=== PATIENT | male | born 1965 | race Caucasian/White ===

== ENCOUNTER 2017-06-08 08:09 | Inpatient (IN) ==
[2017-06-08] MEDS ORDERED: Aspirin 81 MG TAB.CHEW PO ONE (08:18)
[2017-06-08] MEDS ORDERED: 0.9 % Sodium Chloride 1,000 ML IVC ONE ×2 (08:35→08:50)
--- NOTE | 2017-06-08 08:35 | Emergency Department Note ---
Disposition Clinical Impression: Atrial fibrillation with RVR, SOB (shortness of breath), Lightheadedness Chest pain Qualifiers: Chest pain type: unspecified Qualified Code(s): R07.9 - Chest pain, unspecified Disposition: Admitted As Inpatient Condition: Fair General Adult HPI - General Chief complaint: ED Chest Pain Stated complaint: JALIL, chest pain Time Seen by Provider: 06/08/17 08:17 Source: patient, family Limitations: language barrier Nursing Notes Reviewed: Yes Vital Signs Reviewed: Yes - History of Present Illness Pain Scale: 2 - Related Data Home Medications Medication Instructions Recorded Confirmed No Known Home Drugs 06/08/17 06/08/17 Allergies Allergy/AdvReac Type Severity Reaction Status Date / Time No Known Allergies Allergy Verified 06/08/17 09:01 Past Medical History - Past Medical History Medical history: Reports: atrial fibrillation Psychiatric history: Reports: no psych history - Social History Smoking Status: Former smoker Smokeless Tobacco Status: No Alcohol use: Reports: heavy Drug use: Reports: none Physical Exam - General Limitations: language barrier General appearance: alert, in no apparent distress Course Vital Signs Temperature 97.9 F 06/08/17 08:11 Pulse Rate 186 06/08/17 08:11 Respiratory Rate 18 06/08/17 08:11 Blood Pressure 0/0 06/08/17 08:11 O2 Sat by Pulse Oximetry 100 06/08/17 08:11 Temperature 97.9 F 06/08/17 08:11 Pulse Rate 109 06/08/17 12:02 Respiratory Rate 18 06/08/17 12:02 Blood Pressure 165/96 06/08/17 12:09 O2 Sat by Pulse Oximetry 95 06/08/17 12:06 Oxygen Delivery Oxygen Delivery Room Air Medical Decision Making - MDM Narrative Medical decision making narrative: This documentation is done with the assistance of Dragon dictation. Despite efforts made to ensure accuracy, there may be inaccuracies in roll forming machine set up operator or spelling and typographical errors. Patient evaluated on arrival with chest pain history of A. fib. No old EKG here. Initial EKG has a wandering baseline and difficult to interpret this could be A. fib but it looks sicker could be P waves also saw repeating EKG. We are going to order a cardiac workup on him and reassess. He will most likely need admission. He is in agreement with this plan. Chest X-Ray 06/08/17 08:18 IMPRESSION: In this patient with cardiomegaly, ground-glass opacities at the right lung base may represent mild edema or atelectasis. Early pneumonitis cannot be definitively excluded. D/ / Gerard Heart MD / Gerard Heart MD Interpreting Provider: Gerard Heart MD 916 hours: Patient started on diltiazem IV and oral. His heart rates come down to 100. Chest x-ray is done. He is any cough and does not have any fevers here. Waiting on lab work then we will admit. He is in agreement with this plan. 30 hours. Patient's heart rates down to 100, still in atrial fibrillation. Chest x-ray showed a possible groundglass appearance certain add-on BNP I do not think this is pneumonia. Speak with hospitalist for admission. - Lab Data Result diagrams: 06/08/17 08:32 06/08/17 08:32 Lab Results 06/08/17 06/08/17 06/08/17 Range/Units 08:32 08:32 08:32 WBC 7.5 (4.3-11.1) K/mcL RBC 5.24 (4.19-5.50) M/mcL Hgb 17.4 H (12.9-16.9) g/dL Hct 51.7 H (37.5-50.1) % MCV 98.7 (83.0-100.0) fL MCH 33.2 (28.0-33.3) pg MCHC 33.7 (31.6-35.5) g/dL RDW 13.7 (11.5-14.5) % Plt Count 206 (140-400) K/mcL MPV 10.8 (9.4-12.4) fL Immature Gran % 0.4 (0-4) % Seg Neutrophils % 62.1 % Lymphocytes % 27.4 % Monocytes % 8.1 % Eosinophils % 1.3 % Basophils % 0.7 % Neutrophils # 4.7 (1.6-8.9) K/mcL Lymphocytes # 2.1 (0.6-4.6) K/mcL Monocytes # 0.6 (0.0-1.3) K/mcL Eosinophils # 0.1 (0.0-0.6) K/mcL Basophils # 0.1 (0.0-0.2) K/mcL Sodium 139 (136-145) mEq/L Potassium 4.0 (3.5-5.1) mEq/L Chloride 105 (98-107) mEq/L Carbon Dioxide 24 (23-29) mEq/L BUN 13 (6-20) mg/dL Creatinine 1.14 (0.70-1.30) mg/dL Est GFR ( Amer) > 60 (> 60) Est GFR (Non-Af Amer) > 60 (> 60) BUN/Creatinine Ratio 11 (6-26) Glucose 119 H (70-105) mg/dL Calculated Osmolality 289 (280-300) Calcium 10.1 (8.6-10.3) mg/dL Troponin I 0.03 (< 0.04) ng/mL B-Natriuretic Peptide 772 H (Less than 100) pg/mL TSH 3.140 (0.340-5.600) mcIU/mL Critical Care Time Critical Care Time: Yes Total Critical Care Time: 32 Attestation: This is excluding any separately billable procedures.
[2017-06-08 08:46] LABS: Basophils # 0.1 K/mcL (0.0-0.2); Basophils % 0.7 %; Eosinophils # 0.1 K/mcL (0.0-0.6); Eosinophils % 1.3 %; Hematocrit 51.7 % (37.5-50.1); Hemoglobin 17.4 g/dL (12.9-16.9); Immature Granulocytes % 0.4 % (0-4); Lymphocytes # 2.1 K/mcL (0.6-4.6); Lymphocytes % 27.4 %; Mean Corpuscular HGB Conc 33.7 g/dL (31.6-35.5); Mean Corpuscular Hemoglobin 33.2 pg (28.0-33.3); Mean Corpuscular Volume 98.7 fL (83.0-100.0); Mean Platelet Volume 10.8 fL (9.4-12.4); Monocytes # 0.6 K/mcL (0.0-1.3); Monocytes % 8.1 %; Neutrophils # 4.7 K/mcL (1.6-8.9); Platelet Count 206 K/mcL (140-400); Red Blood Count 5.24 M/mcL (4.19-5.50); Red Cell Distribution Width 13.7 % (11.5-14.5); Segmented Neutrophils % 62.1 %
--- NOTE | 2017-06-08 08:50 | Emergency Department Note ---
Disposition Clinical Impression: Atrial fibrillation with RVR, SOB (shortness of breath), Lightheadedness Chest pain Qualifiers: Chest pain type: unspecified Qualified Code(s): R07.9 - Chest pain, unspecified Disposition: Admitted As Inpatient Condition: Fair Time of Disposition: 09:37 Arrhythmia/Palpitations HPI - General Chief Complaint: ED Arrhythmia/Palpitations Stated Complaint: JALIL, chest pain Time Seen by Provider: 06/08/17 08:17 Source: patient, family Limitations: language barrier Nursing Notes Reviewed: Yes Vital Signs Reviewed: Yes - History of Present Illness HPI Narrative: 52-year-old male complains of onset of chest pain, lightheadedness without vertigo-like symptoms, and dyspnea on exertion. Patient states his symptoms started after he woke up this morning around 0530 hrs., And any exertion with increase his shortness of breath and lightheadedness and chest pressure. Patient states his chest pressure is currently 2/10 but elevates to 4/10 with exertion, and symptoms have been constant. Patient denies any radiation of pain symptoms to his neck, or upper extremities. Patient states he may have a history of A. fib after being told back in the , blood patient's currently under no treatment for any medical condition. Patient denies any recent illness to include flulike symptoms, abdominal pain, nausea vomiting diarrhea. Patient denies any recent long distance travel, prior history of PE or DVT, hormone replacement therapy prior diagnosis of neoplasm, and no hemoptysis or rectal bleeding. Patient also adds that he has been having the palpitations for songs he can remember but this is the first time he has had shortness of breath and chest pressure. Patient is no longer a tobacco user. Patient quit 20 years ago and smoked for 25 years - Related Data Home Medications Medication Instructions Recorded Confirmed No Known Home Drugs 06/08/17 06/08/17 Allergies Allergy/AdvReac Type Severity Reaction Status Date / Time No Known Allergies Allergy Verified 06/08/17 09:01 All systems ED: reviewed and negative except as stated. Review of Systems: As Per HPI Constitutional: Denies: fever, chills, weakness ENT ED: Denies: congestion Cardiovascular: Reports: chest pain, palpitations, dyspnea on exertion. Denies : orthopnea Respiratory: Reports: dyspnea. Denies: cough, wheezes Past Medical History - Past Medical History Attestation: Yes The following information was validated with the patient. Source: patient, nursing notes reviewed Medical history: Reports: atrial fibrillation Psychiatric history: Reports: no psych history - Social History Smoking Status: Former smoker Smokeless Tobacco Status: No Alcohol use: Reports: heavy Drug use: Reports: none Physical Exam Vital Signs Temperature 97.9 F 06/08/17 08:11 Pulse Rate 186 06/08/17 08:11 Respiratory Rate 18 06/08/17 08:11 Blood Pressure 0/0 06/08/17 08:11 O2 Sat by Pulse Oximetry 100 06/08/17 08:11 Temperature 97.9 F 06/08/17 08:11 Pulse Rate 150 06/08/17 08:44 Respiratory Rate 18 06/08/17 08:44 Blood Pressure 96/62 06/08/17 08:44 O2 Sat by Pulse Oximetry 97 06/08/17 08:44 Oxygen Delivery Oxygen Delivery Room Air CONSTITUTIONAL: Well-appearing; well-nourished; A&O X 3, in no apparent distress HEAD: Normocephalic; atraumatic EYES: PERRL, no scleral icterus NOSE: The nose is normal in appearance without rhinorrhea NECK: No JVD or distended neck veins RESP: Normal chest excursion with respiration; breath sounds clear and equal bilaterally; no wheezes, rhonchi, or rales CARD: Iregularly irregular rhythm, without murmurs, rub or gallop ABD: Non-distended; non-tender, soft, without rigidity, rebound or guarding,no pulsatile mass CHEST: No pain with palpation SKIN: Normal for age and race; warm and dry without diaphoresis ; no apparent lesions EXTREMITIES: Pulses are 2 plus and equal times 4 extremities, no peripheral edema or calf muscle pain - General Limitations: language barrier General appearance: alert, in no apparent distress Course - Reevaluation(s) Reevaluation #1: Patient is receiving IV fluid boluses to increase his blood pressure which is currently 96/62. Patient currently appearing well, has no pallor or diaphoresis and not short of breath. Time: 08:55 Reevaluation #2: After the Diltiazem oral and IV, and the addition of IV fluids patient's heart rate is currently between 90s and 110 bpm. Patient no longer has chest pressure. Patient states she still feels little lightheaded. Repeat blood pressure is currently 129/115. Time: 09:11 Reevaluation #3: repeat EKG ordered. Pt is currently comfortable and stable condition. Time: 09:26 - Consultations Consultation #1: Patient was accepted for admission by Dr. Mery Mejia hospitalist in stable condition to telemetry bed. Time: 09:36 Consultation #2: Dr. Lemon of cardiology has been consulted and informed of the patient's condition on being in A. fib RVR, currently rate controlled on diltiazem. Time: 09:39 Consultation #3: Patient had a rhythm change to his EKG showing bigeminy. Dr. Lemon of cardiology was called and updated on the change. He states he will see the patient Time: 10:55 Vital Signs Temperature 97.9 F 06/08/17 08:11 Pulse Rate 186 06/08/17 08:11 Respiratory Rate 18 06/08/17 08:11 Blood Pressure 0/0 06/08/17 08:11 O2 Sat by Pulse Oximetry 100 06/08/17 08:11 Temperature 97.9 F 06/08/17 08:11 Pulse Rate 114 06/08/17 10:19 Respiratory Rate 16 06/08/17 10:19 Blood Pressure 119/101 06/08/17 10:19 O2 Sat by Pulse Oximetry 96 06/08/17 10:19 Oxygen Delivery Oxygen Delivery Room Air Arrhythmia/Palpitations - [facility] Narrative Medical decision making narrative: Patient presents with A. fib RVR at a rate of 160s to 180s. Patient also has chest pressure that it worsens with exertion. Patient will receive ACS workup and rhythm control with diltiazem by mouth 60 mg along with a 25 mg bolus of IV diltiazem. Patient blood pressure can tolerate it. Patient is mildly hypotensive at 96/62 and will receive IV boluses to increase blood pressure before giving antiarrhythmic drugs. Patient's blood pressure was elevated enough outside of his mild hypotension to receive his oral 30 mg and IV diltiazem 25 mg, and brought the patient under rate control between 90s and 110. Patient's diastolic blood pressure continues to be elevated above 110. Patient's chest x-ray shows maybe possible atelectasis and pulmonary vascular congestion for some concerns of possible congestive heart failure, or possible beginning pneumonia. Patient's BNP was elevated and it looks more like possible CHF versus pneumonia. Patient understands and agrees to treatment plan for admission. Patient was accepted for admission by Dr. Mery Mejia hospitalist in stable condition to telemetry bed. - Lab Data Lab results reviewed: Yes I reviewed the patient's lab results. Result diagrams: 06/08/17 08:32 06/08/17 08:32 Lab Results 06/08/17 06/08/17 06/08/17 Range/Units 08:32 08:32 08:32 WBC 7.5 (4.3-11.1) K/mcL RBC 5.24 (4.19-5.50) M/mcL Hgb 17.4 H (12.9-16.9) g/dL Hct 51.7 H (37.5-50.1) % MCV 98.7 (83.0-100.0) fL MCH 33.2 (28.0-33.3) pg MCHC 33.7 (31.6-35.5) g/dL RDW 13.7 (11.5-14.5) % Plt Count 206 (140-400) K/mcL MPV 10.8 (9.4-12.4) fL Immature Gran % 0.4 (0-4) % Seg Neutrophils % 62.1 % Lymphocytes % 27.4 % Monocytes % 8.1 % Eosinophils % 1.3 % Basophils % 0.7 % Neutrophils # 4.7 (1.6-8.9) K/mcL Lymphocytes # 2.1 (0.6-4.6) K/mcL Monocytes # 0.6 (0.0-1.3) K/mcL Eosinophils # 0.1 (0.0-0.6) K/mcL Basophils # 0.1 (0.0-0.2) K/mcL Sodium 139 (136-145) mEq/L Potassium 4.0 (3.5-5.1) mEq/L Chloride 105 (98-107) mEq/L Carbon Dioxide 24 (23-29) mEq/L BUN 13 (6-20) mg/dL Creatinine 1.14 (0.70-1.30) mg/dL Est GFR ( Amer) > 60 (> 60) Est GFR (Non-Af Amer) > 60 (> 60) BUN/Creatinine Ratio 11 (6-26) Glucose 119 H (70-105) mg/dL Calculated Osmolality 289 (280-300) Calcium 10.1 (8.6-10.3) mg/dL Troponin I 0.03 (< 0.04) ng/mL B-Natriuretic Peptide 772 H (Less than 100) pg/mL TSH 3.140 (0.340-5.600) mcIU/mL - EKG Data EKG attestation: Yes I reviewed and interpreted this EKG. EKG results narrative: EKG taken 06/08/2017@0726 hrs. shows A. fib RVR at a rate of 1 48 bpm per the computer. Rhythm along the isoelectric line is difficult to examine for P waves but it does look like they may be present. Repeat EKG taken at 0834 hrs. shows A. fib RVR at a rate of 167 beats minute her the EKG computer read. No clear signs of P waves present. No acute ST elevations or depressions in any leads, no QRS widening or QT prolongation. There are periodic sees present as well. Patient has no previous EKG for comparison taken prior to today.
[2017-06-08] MEDS: dilTIAZem HCl 60 MG TABLET PO SCH ×2 (08:59→12:16)
[2017-06-08 09:07] LABS: Troponin I 0.03 ng/mL (< 0.04)
[2017-06-08 09:09] LABS: BUN/Creatinine Ratio 11 (6-26); Blood Urea Nitrogen 13 mg/dL (6-20); Calcium 10.1 mg/dL (8.6-10.3); Carbon Dioxide 24 mEq/L (23-29); Chloride 105 mEq/L (98-107); Glucose 119 mg/dL (70-105); Osmolality,Calculated 289 (280-300); Sodium 139 mEq/L (136-145); eGFR For African Americans > 60 (> 60); eGFR For Non-African Americans > 60 (> 60)
[2017-06-08] MEDS ORDERED: Naloxone 0.4 MG/ML INJ IVP PRN (11:45)
--- NOTE | 2017-06-08 13:31 | Cardiology Consult Note ---
Addendum entered and electronically signed by Tavo Solis CNP 06/08/17 16:28: Bigeminy and multifocal PVCs also noted on telemetry. BP hypertensive on cardizem gtt. Will also add low dose BB--Lopressor 25mg BID. Original Note: <Tavo Solis - Last Filed: 06/08/17 14:47> Date of Encounter: 06/08/17 Time of Encounter: 13:30 Assessment and Plan (1) Atrial fibrillation with RVR Current Visit: Yes Status: Acute Per pt, initially diagnosed in the 90s with no issues since then. Suspect PAF given his acute symptoms. Intermittent palpitations over the years, but with exertional chest pain, dyspnea, fatigue over the past week. A-Fib RVR rate 167 on admission. K and TSH within normal range. Check Mag. Currently A-Fib, better rate controlled after one time dose of IV push 25mg Cardizem was given. PO Cardizem was was started at 30mg D0qheys. However, would recommend cardizem gtt until pt is adequately rate controlled before being switched to PO. HR still currently >100. Start cardizem gtt at 5mg/hr. If rate controlled tomorrow, will switch to PO. TTE to evaluate structure and function. Discussed with Dr. Lemon regarding. Plan for stress test tomorrow if rate controlled given symptoms of exertional chest pain and dyspnea and concern of A- Fib being ischemia induced. [id number] 0. Hypertensive now, but per pt, is usually hypotensive. 81mg ASA only now given his low [id number]. Heparin gtt while inpt. Recommend outpt sleep study to evaluate for SAVITA. Continue to follow. (2) Chest pain Current Visit: Yes Status: Acute Exertional chest pain over the past week with dyspnea. Improves with rest. Could be secondary to A-Fib RVR, but unable to rule out ischemic cause. Troponin negative x 1. Trend for total of 3. Check TTE to evaluate structure and function. Discussed with Dr. Lemon. Plan for stress test tomorrow. Risk factors for CAD include obesity and prior tobacco abuse. Qualifiers: Chest pain type: unspecified Qualified Code(s): R07.9 - Chest pain, unspecified Discussion w patient/family: The assessment and plan as outlined above was discussed with the patient and/or family members who expressed understanding and agreement. All questions were answered. Thank you for involving us in the care of your patient. Please call with any questions. I will discuss all the above with Dr. Lemon and make changes as necessary. History of Present Illness Consult date: 06/08/17 Requesting physician: Francisco Javier Delgado Consult reason: A-Fib RVR Chief complaint: chest pain, dyspnea History of present illness: Mr. Gaxiola is a 52 year old male with PMH of A-Fib and prior tobacco abuse that presented with complaint of chest heaviness, lightheadedness without vertigo- like symptoms, and worsening dyspnea on exertion over the past week. Reports chest pain would worsen on exertion, improve with rest. Patient states he was told he had A. fib in the , but has never followed up or had symptoms like these. Occasional palpitations. HR on presentation 167, A-Fib RVR. HR currently 120s-130s at bedside, denies chest pain currently. Initial troponin negative. BNP 772. Admits to drinking 2 beers/day. Cardiology consulted for further recommendations. Past Med Surg Social Fam HX - Past Medical History Medical history: atrial fibrillation Psychiatric history: no psych history - Social History Smoking Status: Former smoker Smokeless Tobacco Status: No Alcohol use: heavy Drug use: none Medications and Allergies No Known Home Drugs 06/08/17 [History] 3 Allergy/AdvReac Type Severity Reaction Status Date / Time No Known Allergies Allergy Verified 06/08/17 09:01 All Systems Review: The remainder of the systems were reviewed and are negative - Cardiovascular Cardiovascular: as per HPI, chest pain with exertion, dyspnea on exertion, palpitations - Respiratory Respiratory: dyspnea Physical Examination Vital Signs, Last 4 Hours Pulse Resp BP Pulse Ox 06/08/17 12:09 165/96 06/08/17 12:06 95 06/08/17 12:02 109 18 151/107 95 06/08/17 11:54 105 17 146/105 95 06/08/17 11:49 96 06/08/17 10:19 114 16 119/101 96 Vital Signs Temp Pulse Resp BP Pulse Ox 06/08/17 12:09 165/96 06/08/17 12:06 95 06/08/17 12:02 109 18 151/107 95 06/08/17 11:54 105 17 146/105 95 06/08/17 11:49 96 06/08/17 10:19 114 16 119/101 96 06/08/17 09:30 99 16 115/96 95 06/08/17 09:25 112/60 06/08/17 09:20 109 16 94/63 96 06/08/17 09:17 96 18 129/105 95 06/08/17 09:06 100 18 127/106 96 06/08/17 08:44 150 18 96/62 97 06/08/17 08:31 169 18 145/120 97 06/08/17 08:11 97.9 F 186 18 0/0 100 Intake and Output 06/07/17 06/08/17 06/08/17 23:59 07:59 15:59 Intake Total 1110 / 1110 Balance 1110 / 1110 Intake: IV Fluids 1110 / 1110 0.9 % Sodium Chloride 1,000 ML 1000 / 1000 @ 3750 mls/hr IVC .Q16M ONE Rx# :[id number] Calcium Gluconate 1,000 MG In 0 110 / 110 .9 % Sodium Chloride 100 ML @ 220 mls/hr IVPB ONCE ONE Rx#: [id number] Other: Weight 116.755 kg Patient Weight 06/08/17 23:59 Weight 116.755 kg General: Conversant, No Apparent Distress HEENT: Atraumatic, Normocephaly, Mucus Membranes Moist Neck: No JVD, Normal carotid pulses Cardiac: Other (irregularly irregular) Lungs: Other (diminished) Neuro: Alert and responsive Abdomen: Soft, Non-Tender Skin: No rashes noted on visualized skin Musculoskeletal: No Chest Wall Tenderness Extremities: No Clubbing, No Cyanosis, No Edema, Normal Pulses Results 06/08/17 08:32 06/08/17 08:32 Short CBC 06/08/17 Range/Units 08:32 WBC 7.5 (4.3-11.1) K/mcL Hgb 17.4 H (12.9-16.9) g/dL Hct 51.7 H (37.5-50.1) % Plt Count 206 (140-400) K/mcL Neutrophils # 4.7 (1.6-8.9) K/mcL BMP 06/08/17 Range/Units 08:32 Sodium 139 (136-145) mEq/L Potassium 4.0 (3.5-5.1) mEq/L Chloride 105 (98-107) mEq/L Carbon Dioxide 24 (23-29) mEq/L BUN 13 (6-20) mg/dL Creatinine 1.14 (0.70-1.30) mg/dL Glucose 119 H (70-105) mg/dL Calcium 10.1 (8.6-10.3) mg/dL Cardiac Enzymes 06/08/17 Range/Units 08:32 Troponin I 0.03 (< 0.04) ng/mL Impressions Chest X-Ray 06/08/17 08:18 IMPRESSION: In this patient with cardiomegaly, ground-glass opacities at the right lung base may represent mild edema or atelectasis. Early pneumonitis cannot be definitively excluded. D/ / Gerard Heart MD / Gerard Heart MD Interpreting Provider: Gerard Heart MD Active Medications Diltiazem HCl (Cardizem) 30 mg PO QID CRYSTAL Stop: 12/08/17 09:01 Last Admin: 06/08/17 12:16 Dose: 30 mg Naloxone HCl (Narcan) 0.4 mg IVP Q2MIN PRN PRN Reason: SEE COMMENTS Stop: 12/08/17 11:46 - EKG Interpretation EKG results cardiology: personally reviewed (A-FIb RVR rate 167) Consult Discharge Plan - Plan Referrals: Deanne Mixon, [employer] [Primary Care Provider] - <Daniel Lemon - Last Filed: 06/10/17 10:11> Date of Encounter: 06/08/17 Time of Encounter: 18:30 - Attending Attestation I have personally performed a face to face evaluation on this patient. I have reviewed and agree with the care plan. History and Exam by me shows: CC: Palpitations Pt reports new onset of chest pain, mid sternal, 7/10 at most severe, provoked by exercise, associated with heart racing and skipping, lasts ten to fifteen minutes, accompanied by shortness of breath, resolving with rest over three to five minutes, will return if begins exercising again. He has had sensation of his heart racing and skipping for 10 to 15 years, diagnosed with A fib with RVR in late , no further evaluation of follow up since then. He notes heart racing is much improved, was placed on diltiazem drip in ER with better control of heart rate from 180s to low 100s. He is pain free at present, reports shortness of breath has improved. PMH: PAF PE: reviewed, pt seen and examined, agree with above IMP; 1. PAF; may now be persistent, ventricular response rate not fully controlled, will be adjusting oral agents for better heart rate control. 2. Chest pain: unclear etiology, does correlate with RVR to afib, cannot rule out ischemic etiology, will order echo and stress imaging. 2. Severe systolic impairment with EF 20 - 25%, moderate to severe global hypokinesis, unclear etiology, will order stress imaging to evaluate for ischemic etiology of severe LV systolic impairment. Assessment and Plan Discussion w patient/family: The assessment and plan as outlined above was discussed with the patient and/or family members who expressed understanding and agreement. All questions were answered. Thank you for involving us in the care of your patient. Please call with any questions. History of Present Illness History of present illness: Mr. Gaxiola is a 52 year old male All Systems Review: The remainder of the systems were reviewed and are negative Physical Examination Vital Signs, Last 4 Hours Temp Pulse Resp BP Pulse Ox 06/10/17 07:20 98.4 F 132 16 118/101 96 Results 06/10/17 05:32 06/10/17 05:32 Lab Results 06/09/17 06/10/17 06/10/17 14:22 05:32 05:32 WBC 6.7 Hgb 14.9 Hct 45.1 Plt Count 166 APTT 58.1 H Sodium 138 Potassium 4.0 Chloride 108 H Carbon Dioxide 23 BUN 10 Creatinine 1.02 Glucose 112 H Calcium 8.8
[2017-06-08] MEDS ORDERED: *HR* Heparin 5,000 UNIT/ML VIAL IVP ONE (15:12)
[2017-06-08] MEDS ORDERED: *HR* Heparin 5,000 UNIT/ML VIAL IVP PRN ×2 (15:12)
[2017-06-08 15:27] LABS: Hematocrit 43.7 % (37.5-50.1); Mean Platelet Volume 10.6 fL (9.4-12.4); Platelet Count 169 K/mcL (140-400); Red Blood Count 4.37 M/mcL (4.19-5.50); Red Cell Distribution Width 13.7 % (11.5-14.5)
[2017-06-08 15:28] LABS: Hemoglobin 14.4 g/dL (12.9-16.9)
[2017-06-08 15:33] LABS: INR 1.2; Prothrombin Time 12.8 Seconds (9.4-12.1)
[2017-06-08 15:35] LABS: Activated Partial Thrombo Time 30.8 Seconds (26.0-36.0)
[2017-06-08] MEDS ORDERED: 0.9 % Sodium Chloride 1,000 ML ONE (16:34)
[2017-06-08] MEDS: Heparin 25,000 UNIT/500 ML D5W 25,000 UNIT/500 ML BAG IVC SCH (16:47)
[2017-06-08] MEDS ORDERED: Perflutren Lipid Microsphere 1.3 ML in 0.9 % Sodium Chloride 8.7 ML IVP ONE (21:16)
[2017-06-08] MEDS ORDERED: Perflutren Lipid Microsphere 2 ML VIAL ONE (21:29)
--- NOTE | 2017-06-08 21:58 | Internal Med History&Physical ---
Date of Encounter: 06/08/17 Time of Encounter: 15:00 Internal Medicine - H&P: HPI Chief complaint: palpitations Admitted From: Home (chest pain) History of present illness: Mr. Gaxiola is a 52 year old male history of atrial fibrillation also complaint of palpitations and chest pain. Patient notes palpitations respiratory last 24 hours. Chest pain located substernally without any particular radiation. This time patient was assessment has resolved. This time he denies shortness of breath palpitations or diaphoresis. Extremity denies abdominal pain, nausea and vomiting. Low back pain. He denies fever, chills or rigors. Patient denies melena or hematochezia. Patient voices no other concerns. Past Med Surg Social Fam HX - Past Medical History Medical history: atrial fibrillation Psychiatric history: no psych history - Past Surgical History Surgical History: other (Hernia repair unspecified) - Social History Smoking Status: Former smoker Smokeless Tobacco Status: No Alcohol use: heavy Drug use: none - Additional Family History Additional family history: Reviewed and negative for this particular admission Internal Medicine - H&P: Meds No Known Home Drugs 06/08/17 [History] 3 Allergy/AdvReac Type Severity Reaction Status Date / Time No Known Allergies Allergy Verified 06/08/17 09:01 All Systems PM: A 10-system review of systems was performed and is negative for pertinent findings except as documented above in the HPI. Review of systems: All systems reviewed and negative except for as mentioned in history of present illness - Constitutional Vitals: Temp Pulse Resp BP Pulse Ox 98.0 F 101 16 101/86 92 06/08/17 19:15 06/08/17 19:15 06/08/17 19:15 06/08/17 19:15 06/08/17 19:15 General: Apparent distress, calm, cooperative, able to speak in full senses HEENT: Atraumatic, normocephalic, extra movements are intact, no scleral icterus Neck: JVD no pain to palpation, full range of motion Heart: Irregular irregular Lungs: Clear to auscultation Abdomen: Soft, nontender, nondistended, positive bowel sounds, no guarding, no rigidity Muscular skeletal: Patient moves all 4 extremities freely, no calf tenderness, no pedal edema Neuro: Nonfocal, no lateralization, CN are intact Psychiatry: Normal affect Internal Med - H&P Results - Labs CBC & Chem 7: 06/08/17 15:17 06/08/17 08:32 Labs: Short CBC 06/08/17 Range/Units 15:17 WBC 6.5 (4.3-11.1) K/mcL Hgb 14.4 D (12.9-16.9) g/dL Hct 43.7 (37.5-50.1) % Plt Count 169 (140-400) K/mcL Cardiac Enzymes 06/08/17 06/08/17 Range/Units 14:30 20:24 Troponin I 0.03 0.03 (< 0.04) ng/mL - Assessment and plan (1) Atrial fibrillation with RVR Current Visit: Yes Status: Acute Assessment and plan: Atrial fibrillation with rapid ventricular response. Patient was previous history of atrial fibrillation Appreciate cardiology consultation, patient placed on continuous heparin infusion, pending stress test Cycle serial troponin, continues manager cardiac cath, check TSH (2) Chest pain Current Visit: Yes Status: Acute Assessment and plan: Now resolved. Pending stress testing, patient cardiology recommendations Continue his heparin infusion, cycle serial troponin and no clinical evidence of pulmonary embolism or aortic pathology Qualifiers: Chest pain type: unspecified Qualified Code(s): R07.9 - Chest pain, unspecified - Time Spent With Patient Total time spent is greater than 50% in coordination of care (as documented) at patient's floor/unit and/or counseling patient:
[2017-06-09 00:32] LABS: Hematocrit 44.2 % (37.5-50.1); Hemoglobin 14.5 g/dL (12.9-16.9); Mean Corpuscular HGB Conc 32.8 g/dL (31.6-35.5); Mean Corpuscular Hemoglobin 32.5 pg (28.0-33.3); Mean Corpuscular Volume 99.1 fL (83.0-100.0); Mean Platelet Volume 10.8 fL (9.4-12.4); Platelet Count 180 K/mcL (140-400); Red Blood Count 4.46 M/mcL (4.19-5.50); Red Cell Distribution Width 13.9 % (11.5-14.5)
[2017-06-09 00:39] LABS: INR 1.2; Prothrombin Time 12.9 Seconds (9.4-12.1)
[2017-06-09 01:00] LABS: Alanine Aminotransferase 23 Units/L (7-52); Albumin 3.8 g/dL (3.5-5.7); Albumin/Globulin Ratio 1.7 (1.1-2.2); Alkaline Phosphatase 52 Units/L (34-104); Aspartate Amino Transferase 14 Units/L (13-39); BUN/Creatinine Ratio 14 (6-26); Bilirubin,Total 0.6 mg/dL (0.3-1.0); Blood Urea Nitrogen 14 mg/dL (6-20); Carbon Dioxide 23 mEq/L (23-29); Chloride 107 mEq/L (98-107); Chol/HDL Ratio 4.3 (0-4.9); Cholesterol 149 mg/dL (< 200); Globulin 2.2 g/dL (2.4-3.5); Glucose 123 mg/dL (70-105); HDL Cholesterol 35 mg/dL (40-59); LDL Cholesterol,Calculated 93 mg/dL (0-99); Magnesium 2.2 mg/dL (1.6-2.6); Osmolality,Calculated 284 (280-300); Potassium 3.9 mEq/L (3.5-5.1); Sodium 136 mEq/L (136-145); Triglycerides 103 mg/dL (< 150); eGFR For African Americans > 60 (> 60); eGFR For Non-African Americans > 60 (> 60)
[2017-06-09] MEDS ORDERED: Regadenoson 0.4 MG/5 ML SYRINGE IVP ONE (05:44)
[2017-06-09] MEDS: Heparin 25,000 UNIT/500 ML D5W 25,000 UNIT/500 ML BAG IVC SCH (10:25)
--- NOTE | 2017-06-09 10:26 | Cardiology Progress Note ---
Date of Encounter: 06/09/17 Time of Encounter: 10:22 Assessment and Plan (1) Atrial fibrillation with RVR Current Visit: Yes Status: Acute Per pt, initially diagnosed in the 90s with no issues since then. Suspect PAF given his acute symptoms. Intermittent palpitations over the years, but with exertional chest pain, dyspnea, fatigue over the past week. A-Fib RVR rate 167 on admission. Avg HR was 87 bpm over last 12 hours. Currently on cardizem gtt 7.5 mg hr. TTE shows EF 20%, moderate to severe MR. TSH normal. Recommend stopping cardizem gtt and start toprol xl. Discussed with Dr. Lemon regarding. Plan for completing stress test tomorrow followed by [facility]. [id number] 0. C tomorrow to eval for CAD. Heparin gtt for now. (2) Chest pain Current Visit: Yes Status: Acute Exertional chest pain over the past week with dyspnea. Improves with rest. Could be secondary to A-Fib RVR, but unable to rule out ischemic cause. Troponin negative x 3. TTE shows severely reduced EF at 20%. No previous reports to compare. Discussed with Dr. Lemon. Plan for completion of stress test tomorrow followed by [facility]. Risk factors for CAD include obesity and prior tobacco abuse. Qualifiers: Chest pain type: unspecified Qualified Code(s): R07.9 - Chest pain, unspecified (3) Cardiomyopathy Current Visit: Yes Status: Acute TTE shows severely reduced LVEF at 20%. Chronicity unclear. [facility] recommended to assess for ischemic cause. R/B/A of [facility] reviewed. He agrees to proceed. He is currently euvolemic. Low sodium diet. Daily weights. Strict I&O. Start toprol xl. Consider starting aceI if b/p allows once he is rate controlled. Qualifiers: Cardiomyopathy type: unspecified Qualified Code(s): I42.9 - Cardiomyopathy , unspecified Discussion w patient/family: The assessment and plan as outlined above was discussed with the patient and/or family members who expressed understanding and agreement. All questions were answered. Thank you for involving us in the care of your patient. Please call with any questions. Subjective Principal diagnosis: atrial fibrillation with RVR, chest pain, cardiomyoapthy Interval history: Mr. Gaxiola was scheduled for stress test today. Only one half stress test completed due to elevated heart rates. He denies chest pain currently. Objective Vital Signs, Last 4 Hours Temp Pulse Resp BP Pulse Ox 06/09/17 07:12 97.6 F 87 17 109/97 95 General: Conversant, No Apparent Distress HEENT: Atraumatic, Normocephaly, Mucus Membranes Moist Neck: No JVD, Normal carotid pulses Cardiac: Other (Irregularly irregular) Lungs: Normal Breath Sounds, No Wheeze, Rales, Rhonchi Neuro: Alert and responsive, No focal deficits noted Abdomen: Soft, Non-Tender Skin: No rashes noted on visualized skin Musculoskeletal: No Chest Wall Tenderness Extremities: No Clubbing, No Cyanosis, No Edema, Normal Pulses Results 06/09/17 00:18 06/09/17 00:18 Lab Results 06/08/17 06/08/17 06/08/17 14:30 15:17 15:17 WBC 6.5 Hgb 14.4 D Hct 43.7 Plt Count 169 INR 1.2 APTT 30.8 Sodium Potassium Chloride Carbon Dioxide BUN Creatinine Glucose Calcium Magnesium Total Bilirubin AST ALT Alkaline Phosphatase Troponin I 0.03 06/08/17 06/08/17 06/09/17 20:24 22:21 00:18 WBC Hgb Hct Plt Count INR APTT 101.4 H D Sodium Potassium Chloride Carbon Dioxide BUN Creatinine Glucose Calcium Magnesium Total Bilirubin AST ALT Alkaline Phosphatase Troponin I 0.03 0.03 06/09/17 06/09/17 06/09/17 00:18 00:18 00:18 WBC 8.4 Hgb 14.5 Hct 44.2 Plt Count 180 INR 1.2 APTT Sodium 136 Potassium 3.9 Chloride 107 Carbon Dioxide 23 BUN 14 Creatinine 0.99 Glucose 123 H Calcium 9.0 Magnesium 2.2 Total Bilirubin 0.6 AST 14 ALT 23 Alkaline Phosphatase 52 Troponin I 06/09/17 06:41 WBC Hgb Hct Plt Count INR APTT 64.1 H Sodium Potassium Chloride Carbon Dioxide BUN Creatinine Glucose Calcium Magnesium Total Bilirubin AST ALT Alkaline Phosphatase Troponin I - Imaging and Cardiology Echo: report reviewed - EKG Interpretation EKG results cardiology: personally reviewed Consult Discharge Plan - Plan Referrals: Deanne Mixon, SUPERVISOR FITTING [Primary Care Provider] -
[2017-06-09] MEDS ORDERED: Metoprolol XL (24 HR) Succ 25 MG TAB.ER.24H PO SCH (10:30)
[2017-06-09] MEDS: Aspirin 81 MG TAB.CHEW PO SCH (11:32)
--- NOTE | 2017-06-09 16:04 | Internal Med Progress Note ---
Date of Encounter: 06/09/17 Time of Encounter: 16:01 - Assessment and plan (1) Chest pain Current Visit: Yes Status: Acute Assessment and plan: Reported chest pressure associated with palpitations. Now resolved. Possibly secondary to A. fib however he was found to have new cardiomyopathy therefore need to consider ischemic cause. Stress tests and LHC planned for 06/10. Cardiology following. Cont hep gtt Qualifiers: Chest pain type: unspecified Qualified Code(s): R07.9 - Chest pain, unspecified (2) Atrial fibrillation with RVR Current Visit: Yes Status: Acute Assessment and plan: reports an episode of A. fib in 1990; no anticoagulation at that time. Now symptomatic with palpitations and chest pressure. EKG with Atrial fibrillation with rapid ventricular response (HRs in 160s). He treated with Cardizem and heparin drip. TSH normal. TTE with EF 20%, mildly dilated left ventricle, no evidence of LV thrombus. Cardizem drip stopped and oral BB started per cardiology recommendations. Cont hep gtt. Stress test/LHC planned for 06/10. Cardiology following. (3) Cardiomyopathy Current Visit: Yes Status: Acute Assessment and plan: TTE with EF at 20%, mildly dilated left atrium and mild DD. No known history of CHF. Denies sleep apnea, drinks 3-4 beers daily. Evaluated by cardiology who recommended LHC to assess for ischemic cause. Chronicity unclear. LHC recommended to assess for ischemic cause. Appears euvolemic, no rails or edema on exam. Cont daily weights, strict I&O and low-sodium diet. Start toprol xl. Consider starting aceI if b/p allows once he is rate controlled. Cardiology following. Qualifiers: Cardiomyopathy type: unspecified Qualified Code(s): I42.9 - Cardiomyopathy , unspecified (4) ETOH abuse Current Visit: Yes Status: Acute Assessment and plan: Reports drinking 3-4 beers daily however suspect this may be more than reported. Denies previous history of withdrawal. No evidence of withdrawal on 06/09 exam. Monitor with ERINWA. (5) DVT prophylaxis Current Visit: Yes Status: Acute Assessment and plan: heparin gtt - Time Spent With Patient Total time spent is greater than 50% in coordination of care (as documented) at patient's floor/unit and/or counseling patient: - Subjective Interval history: Seen and examined at bedside. Patient is new to me, information obtained from chart review and patient report. Says he feels well and would like to go home if possible. Feels a little palpitations at times but overall improved. No chest pain or shortness of breath. Discussed echo findings with him and he is agreeable for left heart catheterization if cardiology recommends. - Constitutional Vitals: Temp Pulse Resp BP Pulse Ox 98.3 F 104 20 127/89 95 06/09/17 15:44 06/09/17 15:44 06/09/17 15:44 06/09/17 15:44 06/09/17 15:44 General appearance: Present: A&O X 3, no acute distress - Head Head exam: Present: atraumatic, normocephalic - Eye Eye exam: Present: PERRL, conjuntiva pink, sclera anicteric Pupils: Present: PERRL - Neck Neck exam general surgery: Present: supple, trachea midline. Absent: lymphadenopathy - Respiratory Respiratory exam: Present: CTAB. Absent: accessory muscle use, rales, rhonchi, wheezes - Cardiovascular Cardiovascular exam: Present: irregular rhythm, +S1, +S2. Absent: diastolic murmur, gallop, rubs, systolic murmur - GI/Abdominal GI/Abdominal exam: Present: normal bowel sounds, soft, no peritoneal signs. Absent: distended, tenderness - Extremities Exam Extremities exam: Present: warm, radial pulses palpable and symmetrical. Absent : calf tenderness, cyanotic, pedal edema - Neurological Exam Neurological exam: Present: CN II-XII intact, oriented X3, no focal deficits. Absent: pronater drift, facial droop, speech deficit - Skin Skin exam: Present: dry, intact Internal Medicine: Result - Labs CBC & Chem 7: 06/09/17 00:18 06/09/17 00:18 Labs: Short CBC 06/09/17 Range/Units 00:18 WBC 8.4 (4.3-11.1) K/mcL Hgb 14.5 (12.9-16.9) g/dL Hct 44.2 (37.5-50.1) % Plt Count 180 (140-400) K/mcL BMP 06/09/17 00:18 Sodium 136 Potassium 3.9 Chloride 107 Carbon Dioxide 23 BUN 14 Creatinine 0.99 Glucose 123 H Calcium 9.0 Cardiac Enzymes 06/08/17 06/09/17 Range/Units 20:24 00:18 Troponin I 0.03 0.03 (< 0.04) ng/mL Liver Function 06/09/17 Range/Units 00:18 Total Bilirubin 0.6 (0.3-1.0) mg/dL AST 14 (13-39) Units/L ALT 23 (7-52) Units/L Alkaline Phosphatase 52 (34-104) Units/L Albumin 3.8 (3.5-5.7) g/dL - ABG Interpretation ABG results: PT/INR, D-dimer PT 12.9 Seconds (9.4-12.1) H 06/09/17 00:18 - Impressions Impressions Echocardiogram 06/08/17 13:48 Impressions: LVEF 20%. Indeterminate diastolic function. There is no LV thrombus. Definity echo contrast was used. Mildly dilated left ventricle. RV size is normal. Function is moderate to severely reduced. Mild-moderate mitral regurgitation. Mild-moderate tricuspid regurgitation. Mild pulmonic regurgitation. Mild pulmonary hypertension. The IVC is dilated. Left Ventricular Wall Motion: Rest Echo Findings The apex, apical inferior, mid inferior, basal inferior, apical anterior, mid anterior, basal anterior, apical septal, mid inferior septal, basal inferior septal, apical lateral, mid anterior lateral, basal anterior lateral, mid anterior septal, mid inferior lateral, basal anterior septal and basal inferior lateral friend were hypokinetic. Findings: Study Quality * Technically challenging due to body habitus. ECG Findings * Atrial fibrillation with ventricular ectopy or aberrant conduction. Left Ventricle * LVEF 20%. * Indeterminate diastolic function. * There is no LV thrombus. * Definity echo contrast was used. * Mildly dilated left ventricle. Right Ventricle * RV size is normal. Function is moderate to severely reduced. Left Atrium * Mildly dilated left atrium. Right Atrium * Normal right atrial size. Aortic Valve * Aortic valve not well visualized. * No aortic stenosis. * Trace aortic regurgitation. Mitral Valve * Normal mitral valve structure. * No mitral stenosis. * Mild-moderate mitral regurgitation. Tricuspid Valve * Tricuspid valve not well visualized. * Mild-moderate tricuspid regurgitation. * Estimated RA pressure is 8 mmHg. * Estimated RVSP is 41 mmHg. * Mild pulmonary hypertension. Pulmonic Valve * Pulmonic valve is not well visualized. * No pulmonic stenosis. * Mild pulmonic regurgitation. Pulmonary Artery * Pulmonary artery not well visualized. Aorta * Normally sized aortic root. Pericardium * There is no pericardial effusion present. Interatrial Septum * No evidence of PFO by color Doppler. IVC * The IVC is dilated. * > 50% respiratory change Consult Discharge Plan - Plan Referrals: Deanne Mixon, ABSTRACT SEARCHER [Primary Care Provider] -
[2017-06-09] MEDS ORDERED: *HR* LORazepam 2 MG/ML VIAL IVP PRN ×3 (16:10)
--- NOTE | 2017-06-09 17:07 | Electrocardiograph Report ---
[address] [address] Test Date: 2017-06-08 Pat Name: Luis Enrique Gaxiola Department: 103 Room: [facility] Gender: M Assigner: MSC : 1965 Requested By: Louis Denson Order Number: [id number] Reading MD: Antoinette Jefferson Measurements Intervals [place] Rate: 167 P: FL: 0 QRS: 81 QRSD: 87 T: 0 QT: 272 QTc: 363 Interpretive Statements ATRIAL FIBRILLATION WITH RAPID VENTRICULAR RESPONSE WITH ABERRANT CONDUCTION OR VENTRICULAR PREMATURE COMPLEXES NONSPECIFIC ST & T-WAVE ABNORMALITY ABNORMAL RHYTHM ECG Electronically Signed On 06-09-2017 17:05:57 EDT by Antoinette Jefferson
--- NOTE | 2017-06-09 17:15 | Electrocardiograph Report ---
[address] [place], [place] [address] Test Date: 2017-06-08 Pat Name: Luis Enrique Gaxiola Department: 102 Room: 2S5 Gender: M Fast Food Server: Raudel : 1965 Requested By: Louis Denson Order Number: [id number] Reading MD: Chaka Jefferson Measurements Intervals [place] Rate: 111 P: SD: 0 QRS: 92 QRSD: 102 T: 125 QT: 343 QTc: 409 Interpretive Statements Junctional rhythm with VPC's in a bigeminy pattern BORDERLINE RIGHT AXIS DEVIATION NONSPECIFIC T-WAVE ABNORMALITY ABNORMAL RHYTHM ECG Electronically Signed On 06-09-2017 17:13:49 EDT by Chaka Jefferson
[2017-06-10] MEDS: Heparin 25,000 UNIT/500 ML D5W 25,000 UNIT/500 ML BAG IVC SCH (04:24)
[2017-06-10] MEDS ORDERED: Regadenoson 0.4 MG/5 ML SYRINGE IVP ONE ×2 (05:34→07:33)
[2017-06-10 05:59] LABS: Hematocrit 45.1 % (37.5-50.1); Hemoglobin 14.9 g/dL (12.9-16.9); Mean Corpuscular Hemoglobin 32.6 pg (28.0-33.3); Mean Corpuscular Volume 98.7 fL (83.0-100.0); Platelet Count 166 K/mcL (140-400); Red Blood Count 4.57 M/mcL (4.19-5.50); Red Cell Distribution Width 13.6 % (11.5-14.5)
[2017-06-10 06:18] LABS: BUN/Creatinine Ratio 10 (6-26); Blood Urea Nitrogen 10 mg/dL (6-20); Calcium 8.8 mg/dL (8.6-10.3); Carbon Dioxide 23 mEq/L (23-29); Chloride 108 mEq/L (98-107); Glucose 112 mg/dL (70-105); Osmolality,Calculated 286 (280-300); Sodium 138 mEq/L (136-145); eGFR For African Americans > 60 (> 60); eGFR For Non-African Americans > 60 (> 60)
[2017-06-10] MEDS ORDERED: Metoprolol XL (24 HR) Succ 50 MG TAB.ER.24H PO SCH (07:15)
[2017-06-10] MEDS: Aspirin 81 MG TAB.CHEW PO SCH (09:23)
[2017-06-10] MEDS: Folic Acid 1 MG TABLET PO SCH (09:23)
[2017-06-10] MEDS: Vitamin B Complex/Vit C/Vit E 1 EACH TABLET PO SCH (09:23)
--- NOTE | 2017-06-10 10:36 | Cardiology Progress Note ---
Date of Encounter: 06/10/17 Time of Encounter: 10:59 Assessment and Plan (1) Atrial fibrillation with RVR Current Visit: Yes Status: Acute Per pt, initially diagnosed in the 90s with no issues since then. Suspect PAF given his acute symptoms. Intermittent palpitations over the years. A-Fib RVR rate 167 on admission. TTE shows EF 20%, moderate to severe MR. TSH normal. Recommend stopping cardizem gtt and start toprol xl yesterday. HR elevated this morning. Stress test cancelled. Toprol XL increased to 50 mg daily. [id number]. [facility] tomorrow to eval for CAD. Heparin gtt for now. (2) Chest pain Current Visit: Yes Status: Acute Exertional chest pain over the past week with dyspnea. Improves with rest. Could be secondary to A-Fib RVR, but unable to rule out ischemic cause. Troponin negative x 3. TTE shows severely reduced EF at 20%. No previous reports to compare. Discussed with Dr. Lemon. Plan for [facility]. R/B/A of [facility] reviewed and he agrees to proceed. Risk factors for CAD include obesity and prior tobacco abuse. Qualifiers: Chest pain type: unspecified Qualified Code(s): R07.9 - Chest pain, unspecified (3) Cardiomyopathy Current Visit: Yes Status: Acute TTE shows severely reduced LVEF at 20%. Chronicity unclear. [facility] recommended to assess for ischemic cause. R/B/A of [facility] reviewed. He agrees to proceed. He is currently euvolemic. Low sodium diet. Daily weights. Strict I&O. Increase toprol xl today. Consider starting aceI if b/p allows once he is rate controlled. Qualifiers: Cardiomyopathy type: unspecified Qualified Code(s): I42.9 - Cardiomyopathy , unspecified Discussion w patient/family: The assessment and plan as outlined above was discussed with the patient and/or family members who expressed understanding and agreement. All questions were answered. Thank you for involving us in the care of your patient. Please call with any questions. Subjective Principal diagnosis: atrial fibrillation with RVR, chest pain, cardiomyoapthy Interval history: Mr. Gaxiola was scheduled for stress test today. Only one half stress test completed due to elevated heart rates. Stress test is cancelled. He denies chest pain or palpitations. Objective Vital Signs, Last 4 Hours Temp Pulse Resp BP Pulse Ox 04/13/18 07:20 98.4 F 132 16 118/101 96 General: Conversant, No Apparent Distress HEENT: Atraumatic, Normocephaly, Mucus Membranes Moist Neck: No JVD, Normal carotid pulses Cardiac: Other (Irregularly irregular) Lungs: Normal Breath Sounds, No Wheeze, Rales, Rhonchi Neuro: Alert and responsive, No focal deficits noted Abdomen: Soft, Non-Tender Skin: No rashes noted on visualized skin Musculoskeletal: No Chest Wall Tenderness Extremities: No Clubbing, No Cyanosis, No Edema, Normal Pulses Results 06/10/17 05:32 06/10/17 05:32 Lab Results 06/09/17 06/10/17 06/10/17 14:22 05:32 05:32 WBC 6.7 Hgb 14.9 Hct 45.1 Plt Count 166 APTT 58.1 H Sodium 138 Potassium 4.0 Chloride 108 H Carbon Dioxide 23 BUN 10 Creatinine 1.02 Glucose 112 H Calcium 8.8 - Imaging and Cardiology Echo: report reviewed - EKG Interpretation EKG results cardiology: personally reviewed Consult Discharge Plan - Plan Referrals: Deanne Mixon, CONTINUOUS LINTER DRIER OPERATOR [Primary Care Provider] -
--- NOTE | 2017-06-10 11:20 | Pre-Sedation Evaluation ---
Pre-sedation evaluation - Pre-sedation checklist Date of procedure: 06/10/17 Procedure: heart cath Recent Vitals: Last Vital Signs Temp 98.3 F 06/10/17 11:15 Pulse 108 06/10/17 11:15 Resp 20 06/10/17 11:15 BP 132/106 06/10/17 11:15 Pulse Ox 94 06/10/17 11:15 H&P (including ROS) documented in medical record: Yes Previous reaction to sedatives/anesthetics: No Dietary Status: NPO after Midnight Dentition: No loose teeth or bridges ASA Classification *see protocol: CLASS II-Mild systemic disease
[2017-06-10] MEDS ORDERED: ISOVUE-370 200 ML INFUS..BTL IV ONE (16:09)
[2017-06-10] MEDS ORDERED: Nitroglycerin 1,000 MCG/10 ML VIAL IV ONE (16:09)
[2017-06-10] MEDS ORDERED: Heparin 1,000 UNITS/500 mL 500 ML ONE (16:09)
[2017-06-10] MEDS ORDERED: *HR* Heparin 10,000 UNIT/10 ML VIAL ONE (16:09)
[2017-06-10] MEDS ORDERED: 0.9 % Sodium Chloride 1,000 ML ONE ×2 (16:09→16:39)
[2017-06-10] MEDS ORDERED: *HR* Midazolam HCl 2 MG/2 ML VIAL ONE (16:38)
[2017-06-10] MEDS ORDERED: *HR* FentaNYL (PF) 100 MCG/2 ML VIAL ONE (16:39)
--- NOTE | 2017-06-10 20:28 | Internal Med Progress Note ---
Date of Encounter: 06/10/17 Time of Encounter: 13:30 - Assessment and plan (1) Cardiomyopathy Current Visit: Yes Status: Suspected Assessment and plan: To have cardiac cath today to r/o ischemic cause. Meds per cardiology. Qualifiers: Cardiomyopathy type: alcoholic Qualified Code(s): I42.6 - Alcoholic cardiomyopathy (2) Atrial fibrillation Current Visit: Yes Status: Acute Assessment and plan: Rate control and heparin. Qualifiers: Atrial fibrillation type: persistent Qualified Code(s): I48.1 - Persistent atrial fibrillation (3) Chest pain Current Visit: Yes Status: Suspected Assessment and plan: For cardiac cath today. Qualifiers: Chest pain type: chest pain due to myocardial ischemia Ischemic chest pain type: stable angina pectoris Qualified Code(s): I20.8 - Other forms of angina pectoris (4) DVT prophylaxis Current Visit: Yes Status: Acute (5) ETOH abuse Current Visit: Yes Status: Acute Assessment and plan: Reports drinking 3-4 beers daily however suspect this may be more than reported. Denies previous history of withdrawal. No evidence of withdrawal today - Time Spent With Patient Total time spent is greater than 50% in coordination of care (as documented) at patient's floor/unit and/or counseling patient: - Subjective Interval history: Mr Gaxiola is currently in observation for chest pain and rapid a fib. Mr Gaxiola is awaiting cardiac cath. No chest pain at this time. No fever. No GI issues. - Constitutional Vitals: Temp Pulse Resp BP Pulse Ox 98.2 F 97 15 138/88 97 06/10/17 19:25 06/10/17 19:25 06/10/17 19:25 06/10/17 19:25 06/10/17 19:25 General appearance: Present: A&O X 3, answers questions appropriately - Head Head exam: Present: normocephalic - Eye Eye exam: Present: conjuntiva pink - ENT ENT exam: Present: mucous membranes moist - Respiratory Respiratory exam: Present: CTAB. Absent: rales, rhonchi, wheezes - Cardiovascular Cardiovascular exam: Present: irregular rhythm, tachycardia - GI/Abdominal GI/Abdominal exam: Present: soft. Absent: tenderness - Extremities Exam Extremities exam: Present: warm. Absent: tenderness - Neurological Exam Neurological exam: Present: alert, oriented X3 - Skin Skin exam: Present: dry, warm Internal Medicine: Result - Labs CBC & Chem 7: 06/10/17 05:32 06/10/17 05:32 Labs: Short CBC 06/10/17 Range/Units 05:32 WBC 6.7 (4.3-11.1) K/mcL Hgb 14.9 (12.9-16.9) g/dL Hct 45.1 (37.5-50.1) % Plt Count 166 (140-400) K/mcL BMP 06/10/17 05:32 Sodium 138 Potassium 4.0 Chloride 108 H Carbon Dioxide 23 BUN 10 Creatinine 1.02 Glucose 112 H Calcium 8.8 - ABG Interpretation ABG results: PT/INR, D-dimer PT 12.9 Seconds (9.4-12.1) H 06/09/17 00:18 Consult Discharge Plan - Plan Referrals: Deanne Mixon, ASSOCIATE PROJECT MANAGER [Primary Care Provider] -
--- NOTE | 2017-06-11 07:41 | Cardiology Progress Note ---
Date of Encounter: 06/11/17 Time of Encounter: 07:30 Assessment and Plan (1) Cardiomyopathy Current Visit: Yes Status: Suspected TTE shows severely reduced LVEF at 20%. Chronicity unclear. Suspect tachycardia , ETOH induced. [facility] 06/10/17: normal coronary arteries. Continue betablocker, will increase today to improve HR. Recommend ACEi/ARB by discharge if BP will tolerate. Appears euvolemic upon exam. CHF education discussed at length today including Na/fluid restriction diet. Strict I&O's, daily weights. Qualifiers: Cardiomyopathy type: alcoholic Qualified Code(s): I42.6 - Alcoholic cardiomyopathy (2) Atrial fibrillation with RVR Current Visit: Yes Status: Acute Per pt, initially diagnosed in the with no issues since then. Suspect PAF given his acute symptoms. Intermittent palpitations over the years. A-Fib RVR rate 167 on admission. TTE shows EF 20%, moderate to severe MR. TSH normal. HR remains uncontrolled, however improved. Will increase Toprol XL to 75 mg this AM. Avg XW=161 afib. [id number]=5 (CHF). Recommend ASA only for AC. Discussion w patient/family: The assessment and plan as outlined above was discussed with the patient and/or family members who expressed understanding and agreement. All questions were answered. Thank you for involving us in the care of your patient. Please call with any questions. The patient will be discussed and reviewed with Dr. Lemon; changes to be made accordingly. Subjective Principal diagnosis: atrial fibrillation with RVR, chest pain, cardiomyoapthy Interval history: Seen and examined. No events overnight. No issues with cath site. Denies dyspnea, chest pain/discomfort, or palpitations. Long discussion this AM regarding plan of care. Objective Vital Signs, Last 4 Hours Temp Pulse Resp BP Pulse Ox 06/11/17 07:07 97.9 F 118 16 134/93 98 06/11/17 04:57 98.2 F 111 15 113/93 97 General: Conversant, No Apparent Distress HEENT: Atraumatic, Normocephaly, Mucus Membranes Moist Cardiac: Other (irregularly irregular) Lungs: Normal Breath Sounds Neuro: Alert and responsive Abdomen: Soft Skin: No rashes noted on visualized skin Musculoskeletal: No Chest Wall Tenderness Extremities: No Edema, Normal Pulses Other: right groin cath site: soft, no hematoma/bleeding at site. +2 DP/PT pulses Results 06/10/17 05:32 06/10/17 05:32 Lab Results 06/10/17 13:05 APTT 61.1 H Active Medications Aspirin (Aspirin) 81 mg PO DAILY [facility] Stop: 12/09/17 09:01 Last Admin: 06/10/17 09:23 Dose: 81 mg Folic Acid (Folic Acid) 1 mg PO DAILY [facility] Stop: 12/10/17 09:01 Last Admin: 06/10/17 09:23 Dose: 1 mg Lorazepam (Ativan) 1 mg IVP Q1H PRN PRN Reason: Alcohol Withdrawal Stop: 12/09/17 16:11 Lorazepam (Ativan) 2 mg IVP Q4HR PRN PRN Reason: CIWA Score of 10-21 Stop: 12/09/17 16:11 Lorazepam (Ativan) 4 mg IVP Q4HR PRN PRN Reason: CIWA Score of 22-45 Stop: 12/09/17 16:11 Metoprolol Succinate (Toprol Xl) 75 mg PO DAILY [facility] Stop: 12/11/17 09:01 Naloxone HCl (Narcan) 0.4 mg IVP Q2MIN PRN PRN Reason: SEE COMMENTS Stop: 12/08/17 11:46 Vitamin B Complex/Vit C/Vit E (Stresstab) 1 each PO DAILY [facility] Stop: 12/10/17 09:01 Last Admin: 06/10/17 09:23 Dose: 1 each - Imaging and Cardiology Echo: report reviewed Cardiac cath: report reviewed Other Results: 12 hour tele: avg CM=[id number] afib. - EKG Interpretation EKG results cardiology: personally reviewed Consult Discharge Plan - Plan Referrals: Deanne Mixon, FLIGHT ENGINEER INSTRUCTOR [Primary Care Provider] -
[2017-06-11 07:57] LABS: Hematocrit 48.6 % (37.5-50.1); Hemoglobin 15.9 g/dL (12.9-16.9); Mean Corpuscular HGB Conc 32.7 g/dL (31.6-35.5); Mean Corpuscular Hemoglobin 32.4 pg (28.0-33.3); Mean Platelet Volume 10.6 fL (9.4-12.4); Platelet Count 187 K/mcL (140-400); Red Blood Count 4.91 M/mcL (4.19-5.50); Red Cell Distribution Width 13.6 % (11.5-14.5)
[2017-06-11 08:12] LABS: BUN/Creatinine Ratio 11 (6-26); Blood Urea Nitrogen 11 mg/dL (6-20); Calcium 9.2 mg/dL (8.6-10.3); Carbon Dioxide 25 mEq/L (23-29); Chloride 106 mEq/L (98-107); Glucose 105 mg/dL (70-105); Osmolality,Calculated 286 (280-300); Sodium 138 mEq/L (136-145); eGFR For African Americans > 60 (> 60); eGFR For Non-African Americans > 60 (> 60)
[2017-06-11] MEDS: Aspirin 81 MG TAB.CHEW PO SCH (08:17)
[2017-06-11] MEDS: Folic Acid 1 MG TABLET PO SCH (08:18)
[2017-06-11] MEDS: Metoprolol XL (24 HR) Succ 25 MG TAB.ER.24H PO SCH (08:18)
[2017-06-11] MEDS: Vitamin B Complex/Vit C/Vit E 1 EACH TABLET PO SCH (08:18)
--- NOTE | 2017-06-11 10:03 | Internal Med Progress Note ---
Date of Encounter: 06/11/17 Time of Encounter: 09:45 - Assessment and plan (1) Cardiomyopathy Current Visit: Yes Status: Suspected Assessment and plan: Alcoholic versus tachycardia induced. Coronaries normal. Rate remains elevated. Metoprolol increased this AM which appears to have lessened ectopy but concern for pause noted. Will continue metoprolol for now. Due to significance of his dysrhythmia and risk for worsened cardiac status ( i.e. VT) I am going to change his status to inpatient. He will need to remain hospitalized for further adjustments of medications and telemetry monitoring. Qualifiers: Cardiomyopathy type: alcoholic Qualified Code(s): I42.6 - Alcoholic cardiomyopathy (2) Atrial fibrillation Current Visit: Yes Status: Acute Assessment and plan: Metoprolol increased today. Heparin stopped per cardiology. Qualifiers: Atrial fibrillation type: persistent Qualified Code(s): I48.1 - Persistent atrial fibrillation (3) Chest pain Current Visit: Yes Status: Ruled-out Assessment and plan: Cath negative. Qualifiers: Chest pain type: chest pain due to myocardial ischemia Ischemic chest pain type: stable angina pectoris Qualified Code(s): I20.8 - Other forms of angina pectoris (4) ETOH abuse Current Visit: Yes Status: Acute Assessment and plan: Remains on CIWA. No clear evidence of withdrawal at this time. (5) DVT prophylaxis Current Visit: Yes Status: Acute Assessment and plan: Was on heparin drip which has been stopped. Will start subqu heparin. - Time Spent With Patient Total time spent is greater than 50% in coordination of care (as documented) at patient's floor/unit and/or counseling patient: - Subjective Interval history: Mr Gaxiola is currently in observation for chest pain and rapid a fib. Mr Gaxiola had cardiac cath yesterday - coronaries normal. Continues to have rapid a fib and ectopy. Metoprolol increased today. Concern for pauses on tele. He feels OK. No CP. No SOB. No cough. Able to lie flat. Appetite OK. - Constitutional Vitals: Temp Pulse Resp BP Pulse Ox 97.9 F 118 16 134/93 98 06/11/17 07:07 06/11/17 07:07 06/11/17 07:07 06/11/17 07:07 06/11/17 07:07 General appearance: Present: A&O X 3, pleasant, answers questions appropriately - Head Head exam: Present: normocephalic - Eye Eye exam: Present: conjuntiva pink - ENT ENT exam: Present: mucous membranes moist - Respiratory Respiratory exam: Present: CTAB. Absent: rales, rhonchi, wheezes - Cardiovascular Cardiovascular exam: Present: irregular rhythm, tachycardia Additional comments: Multiple ventricular ectopy - single, couplets, triplets - GI/Abdominal GI/Abdominal exam: Present: soft. Absent: tenderness - Extremities Exam Extremities exam: Present: warm. Absent: tenderness - Neurological Exam Neurological exam: Present: alert, oriented X3, no focal deficits - Skin Skin exam: Present: dry, warm Internal Medicine: Result - Labs CBC & Chem 7: 06/11/17 07:42 06/11/17 07:42 Labs: Short CBC 06/11/17 Range/Units 07:42 WBC 6.8 (4.3-11.1) K/mcL Hgb 15.9 (12.9-16.9) g/dL Hct 48.6 (37.5-50.1) % Plt Count 187 (140-400) K/mcL BMP 06/11/17 07:42 Sodium 138 Potassium 4.0 Chloride 106 Carbon Dioxide 25 BUN 11 Creatinine 0.98 Glucose 105 Calcium 9.2 - ABG Interpretation ABG results: PT/INR, D-dimer PT 12.9 Seconds (9.4-12.1) H 06/09/17 00:18 Consult Discharge Plan - Plan Referrals: Deanne Mixon, SODA TESTER [Primary Care Provider] -
[2017-06-11] MEDS: *HR* Heparin 5,000 UNIT/ML VIAL SQ SCH (18:38)
[2017-06-12 03:57] LABS: Hematocrit 44.5 % (37.5-50.1); Hemoglobin 14.7 g/dL (12.9-16.9); Mean Corpuscular Hemoglobin 32.6 pg (28.0-33.3); Mean Corpuscular Volume 98.7 fL (83.0-100.0); Mean Platelet Volume 10.7 fL (9.4-12.4); Platelet Count 171 K/mcL (140-400); Red Blood Count 4.51 M/mcL (4.19-5.50); Red Cell Distribution Width 13.5 % (11.5-14.5)
[2017-06-12 04:19] LABS: BUN/Creatinine Ratio 14 (6-26); Blood Urea Nitrogen 14 mg/dL (6-20); Calcium 8.9 mg/dL (8.6-10.3); Carbon Dioxide 23 mEq/L (23-29); Chloride 106 mEq/L (98-107); Glucose 109 mg/dL (70-105); Osmolality,Calculated 289 (280-300); Sodium 139 mEq/L (136-145); eGFR For African Americans > 60 (> 60); eGFR For Non-African Americans > 60 (> 60)
[2017-06-12] MEDS: *HR* Heparin 5,000 UNIT/ML VIAL SQ SCH ×2 (06:11→16:11)
[2017-06-12] MEDS: Folic Acid 1 MG TABLET PO SCH (08:12)
[2017-06-12] MEDS: Metoprolol XL (24 HR) Succ 25 MG TAB.ER.24H PO SCH (08:12)
[2017-06-12] MEDS: Aspirin 81 MG TAB.CHEW PO SCH (08:12)
[2017-06-12] MEDS: Vitamin B Complex/Vit C/Vit E 1 EACH TABLET PO SCH (08:12)
--- NOTE | 2017-06-12 09:02 | Cardiology Progress Note ---
Date of Encounter: 06/12/17 Time of Encounter: 08:30 Assessment and Plan (1) Atrial fibrillation with RVR Current Visit: Yes Status: Acute Per pt, initially diagnosed in the with no issues since then. Suspect PAF given his acute symptoms. Intermittent palpitations over the years. A-Fib RVR rate 167 on admission. TTE shows EF 20%, moderate to severe MR. TSH normal. HR remains uncontrolled, however improved. Will discuss with Dr. Lemon, may increase Toprol XL to BID dosing. Avg RC=061 afib. Frequent couplets, NSVT noted. Anticipate EP consult in AM. [id number]=1 (CHF). Recommend ASA only for AC. (2) Cardiomyopathy Current Visit: Yes Status: Suspected TTE shows severely reduced LVEF at 20%. Chronicity unclear. Suspect tachycardia , ETOH induced. [facility] 06/10/17: normal coronary arteries. Continue betablocker, will increase today to improve HR. Recommend ACEi/ARB by discharge if BP will tolerate. Appears euvolemic upon exam. CHF education discussed at length today including Na/fluid restriction diet. Strict I&O's, daily weights. Qualifiers: Cardiomyopathy type: alcoholic Qualified Code(s): I42.6 - Alcoholic cardiomyopathy Discussion w patient/family: The assessment and plan as outlined above was discussed with the patient and/or family members who expressed understanding and agreement. All questions were answered. Thank you for involving us in the care of your patient. Please call with any questions. The patient will be discussed and reviewed with Dr. Lemon; changes to be made accordingly. Subjective Principal diagnosis: atrial fibrillation with RVR, chest pain, cardiomyoapthy Interval history: Seen and examined. No events overnight. No issues with cath site. Denies dyspnea, chest pain/discomfort, or palpitations. Long discussion this AM regarding plan of care. Objective Vital Signs, Last 4 Hours Temp Pulse Resp BP Pulse Ox 06/12/17 07:49 98.6 F 100 18 101/93 98 General: Conversant HEENT: Atraumatic, Normocephaly Cardiac: Other (irregularly irregular) Lungs: Normal Breath Sounds Neuro: Alert and responsive Abdomen: Soft Skin: No rashes noted on visualized skin Musculoskeletal: No Chest Wall Tenderness Extremities: No Edema, Normal Pulses Results 06/12/17 03:45 06/12/17 03:45 Lab Results 06/12/17 06/12/17 06/12/17 03:45 03:45 03:45 WBC 6.9 Hgb 14.7 Hct 44.5 Plt Count 171 Sodium 139 Potassium 4.0 Chloride 106 Carbon Dioxide 23 BUN 14 Creatinine 1.01 Glucose 109 H Calcium 8.9 Magnesium 2.1 Active Medications Aspirin (Aspirin) 81 mg PO DAILY [facility] Stop: 12/09/17 09:01 Last Admin: 06/12/17 08:12 Dose: 81 mg Folic Acid (Folic Acid) 1 mg PO DAILY [facility] Stop: 12/10/17 09:01 Last Admin: 06/12/17 08:12 Dose: 1 mg Heparin Sodium (Porcine) (Heparin) 5,000 unit SQ Q12HR [facility] Stop: 12/11/17 18:01 Last Admin: 06/12/17 06:11 Dose: Not Given Lorazepam (Ativan) 1 mg IVP Q1H PRN PRN Reason: Alcohol Withdrawal Stop: 12/09/17 16:11 Lorazepam (Ativan) 2 mg IVP Q4HR PRN PRN Reason: CIWA Score of 10-21 Stop: 12/09/17 16:11 Lorazepam (Ativan) 4 mg IVP Q4HR PRN PRN Reason: CIWA Score of 22-45 Stop: 12/09/17 16:11 Metoprolol Succinate (Toprol Xl) 75 mg PO DAILY [facility] Stop: 12/11/17 09:01 Last Admin: 06/12/17 08:12 Dose: 75 mg Naloxone HCl (Narcan) 0.4 mg IVP Q2MIN PRN PRN Reason: SEE COMMENTS Stop: 12/08/17 11:46 Vitamin B Complex/Vit C/Vit E (Stresstab) 1 each PO DAILY [facility] Stop: 12/10/17 09:01 Last Admin: 06/12/17 08:12 Dose: 1 each - Imaging and Cardiology Echo: report reviewed Cardiac cath: report reviewed Other Results: 12 hour tele: avg NM=444 afib. Frequent PVCs - EKG Interpretation EKG results cardiology: personally reviewed Consult Discharge Plan - Plan Referrals: Deanne Mixon, SHAKER OPERATOR [Primary Care Provider] -
--- NOTE | 2017-06-12 16:30 | Internal Med Progress Note ---
Date of Encounter: 06/12/17 Time of Encounter: 14:00 - Assessment and plan (1) Cardiomyopathy Current Visit: Yes Status: Suspected Assessment and plan: Alcoholic versus tachycardia induced. Coronaries normal. Continues to have rapid a fib and ventricular ectopy. On Metoprolol at this time. BP on lower side. To have EP consult tomorrow. Qualifiers: Cardiomyopathy type: alcoholic Qualified Code(s): I42.6 - Alcoholic cardiomyopathy (2) Atrial fibrillation Current Visit: Yes Status: Acute Assessment and plan: Currently on Metoprolol. EP consult tomorrow. Qualifiers: Atrial fibrillation type: persistent Qualified Code(s): I48.1 - Persistent atrial fibrillation (3) ETOH abuse Current Visit: Yes Status: Acute Assessment and plan: Remains on CIWA. No withdrawal issues. (4) DVT prophylaxis Current Visit: Yes Status: Acute - Time Spent With Patient Total time spent is greater than 50% in coordination of care (as documented) at patient's floor/unit and/or counseling patient: - Subjective Interval history: Mr Gaxiola is currently admitted for atrial fibrillation and systolic heart failure. He remains moderate to high risk due to potential for worsening clinical and cardiac status. Mr Gaxiola feels OK. Heart rate is still high. BP lower today. Still with significant ventricular ectopy. No fever. No CP or SOB. - Constitutional Vitals: Temp Pulse Resp BP Pulse Ox 98.8 F 96 18 114/90 97 06/12/17 16:21 06/12/17 16:21 06/12/17 16:21 06/12/17 16:21 06/12/17 16:21 General appearance: Present: A&O X 3, pleasant, answers questions appropriately - Head Head exam: Present: normocephalic - Eye Eye exam: Present: conjuntiva pink - ENT ENT exam: Present: mucous membranes moist - Respiratory Respiratory exam: Present: CTAB. Absent: rales, rhonchi, wheezes - Cardiovascular Cardiovascular exam: Present: irregular rhythm, tachycardia - GI/Abdominal GI/Abdominal exam: Present: soft. Absent: tenderness - Extremities Exam Extremities exam: Present: warm. Absent: tenderness - Neurological Exam Neurological exam: Present: alert, oriented X3, no focal deficits - Skin Skin exam: Present: dry, warm Internal Medicine: Result - Labs CBC & Chem 7: 06/12/17 03:45 06/12/17 03:45 Labs: Short CBC 06/12/17 Range/Units 03:45 WBC 6.9 (4.3-11.1) K/mcL Hgb 14.7 (12.9-16.9) g/dL Hct 44.5 (37.5-50.1) % Plt Count 171 (140-400) K/mcL BMP 06/12/17 03:45 Sodium 139 Potassium 4.0 Chloride 106 Carbon Dioxide 23 BUN 14 Creatinine 1.01 Glucose 109 H Calcium 8.9 - ABG Interpretation ABG results: PT/INR, D-dimer PT 12.9 Seconds (9.4-12.1) H 06/09/17 00:18 Consult Discharge Plan - Plan Referrals: Deanne Mixon, PATIENT PORTAL REPRESENTATIVE [Primary Care Provider] -
[2017-06-12] MEDS: Metoprolol XL (24 HR) Succ 50 MG TAB.ER.24H PO SCH (21:17)
[2017-06-13] MEDS: *HR* Heparin 5,000 UNIT/ML VIAL SQ SCH ×2 (05:57→10:53)
[2017-06-13 06:09] LABS: Hematocrit 44.8 % (37.5-50.1); Hemoglobin 14.8 g/dL (12.9-16.9); Mean Corpuscular Hemoglobin 32.6 pg (28.0-33.3); Mean Corpuscular Volume 98.7 fL (83.0-100.0); Mean Platelet Volume 11.1 fL (9.4-12.4); Platelet Count 193 K/mcL (140-400); Red Blood Count 4.54 M/mcL (4.19-5.50); Red Cell Distribution Width 13.6 % (11.5-14.5)
[2017-06-13 06:15] LABS: INR 1.2; Prothrombin Time 12.8 Seconds (9.4-12.1)
[2017-06-13 06:34] LABS: BUN/Creatinine Ratio 14 (6-26); Blood Urea Nitrogen 13 mg/dL (6-20); Calcium 9.2 mg/dL (8.6-10.3); Carbon Dioxide 26 mEq/L (23-29); Chloride 107 mEq/L (98-107); Glucose 111 mg/dL (70-105); Osmolality,Calculated 287 (280-300); Sodium 138 mEq/L (136-145); eGFR For African Americans > 60 (> 60); eGFR For Non-African Americans > 60 (> 60)
[2017-06-13] MEDS: Aspirin 81 MG TAB.CHEW PO SCH (08:03)
[2017-06-13] MEDS: Metoprolol XL (24 HR) Succ 50 MG TAB.ER.24H PO SCH ×2 (08:03→21:24)
[2017-06-13] MEDS: Vitamin B Complex/Vit C/Vit E 1 EACH TABLET PO SCH (10:51)
[2017-06-13] MEDS: Folic Acid 1 MG TABLET PO SCH (10:51)
[2017-06-13] MEDS ORDERED: Metoprolol XL (24 HR) Succ 25 MG TAB.ER.24H PO ONE (12:02)
--- NOTE | 2017-06-13 12:07 | Electrophysiology Consult Note ---
<Tavo Solis R - Last Filed: 06/13/17 12:47> Date of Encounter: 06/13/17 Time of Encounter: 12:03 Assessment and Plan (1) Atrial fibrillation with RVR Status: Acute Per pt, initially diagnosed in the with no issues since then. Unclear if PAF or if has been persistent. Intermittent palpitations over the years. A-Fib RVR rate 167 on admission. TTE shows EF 20%, mildly dilated LA. C normal cors. TSH normal. HR improved. 12 hr tele AVG HR 103, A-Fib. Frequent couplets, NSVT noted. Currently on Toprol XL 50mg BID. BP stable. Will increase Toprol XL to 75mg BID. [id number]=8 (CHF). Discussed with Dr. Chaka Jefferson. Recommends PO Amiodarone 200mg BID. Also recommends anticoagulation. Will discuss NOAC vs Coumadin. Can be d/c'd home once rate controlled, but if unable to rate control, can complete JULIO/DCCV as inpt. If able to be rate controlled, plan for DCCV as outpt. Continue to follow. (2) Cardiomyopathy Status: Suspected TTE shows severely reduced LVEF at 20%. Chronicity unclear. Suspect tachycardia , ETOH induced. [facility] 06/10/17: normal coronary arteries. Continue betablocker, will increase today to improve HR. Recommend ACEi/ARB by discharge if BP will tolerate. Appears euvolemic upon exam. CHF education discussed at length including Na/fluid restriction diet. Strict I&O's, daily weights. Recheck TTE as outpt in 3 months to evaluate need for ICD. Qualifiers: Cardiomyopathy type: alcoholic Qualified Code(s): I42.6 - Alcoholic cardiomyopathy Discussion w patient/family: The assessment and plan as outlined above was discussed with the patient and/or family members who expressed understanding and agreement. All questions were answered. Thank you for involving us in the care of your patient. Please call with any questions. I will discuss all the above with Dr. Chaka Jefferson and make changes as necessary. History of Present Illness Consult date: 06/13/17 Requesting physician: Lissette Tyson Consult reason: A-Fib RVR, NSVT Chief complaint: Palpitations History of present illness: Mr. Gaxiola is a 52 year old male with PMH of A-Fib diagnosed in the and prior tobacco abuse that presented to ED with complaint of chest heaviness, lightheadedness without vertigo-like symptoms, and worsening dyspnea on exertion over the past week. Reported chest pain worse on exertion, improved with rest. HR on presentation 167, A-Fib RVR. TTE resulted, EF 20%, underwent LHC on Tuesday with normal coronaries. Pt is currently on Toprol XL 50mg BID and AVG HR 103 with frequent ectopy--bigeminy, short runs of NSVT. EP consulted for further recommendations. Per pt, he has been correlating symptoms with telemetry and he is asymptomatic unless he has 4 or more beat run of NSVT, then he notices palpitations. Denies active chest pain or dyspnea. Past Med Surg Social Fam HX - Past Medical History Medical history: atrial fibrillation Psychiatric history: no psych history - Past Surgical History Surgical History: other (Hernia repair unspecified) - Social History Smoking Status: Former smoker Smokeless Tobacco Status: No Alcohol use: heavy Drug use: none Medications and Allergies Amiodarone [Cordarone] 200 mg PO BID #60 tablet 06/13/17 [Rx] Apixaban [Eliquis] 5 mg PO BID #60 tablet 06/13/17 [Rx] Folic Acid 1 mg PO DAILY tablet 06/13/17 [Rx] Metoprolol XL (24 HR) Succ [Toprol Xl] 75 mg PO BID #90 tab.er.24h 06/13/17 [Rx] Vitamin B Complex/Vit C/Vit E [Stresstab] 1 each PO DAILY tablet 06/13/17 [Rx] 3 Allergy/AdvReac Type Severity Reaction Status Date / Time No Known Allergies Allergy Verified 06/08/17 09:01 All Systems Review: The remainder of the systems were reviewed and are negative - Cardiovascular Cardiovascular: as per HPI, palpitations Physical Examination Vital Signs, Last 4 Hours Temp Pulse Resp BP Pulse Ox 06/13/17 11:31 98.4 F 105 17 123/76 06/13/17 08:40 98.0 F 113 18 112/91 96 Vital Signs Temp Pulse Resp BP Pulse Ox 06/13/17 11:31 98.4 F 105 17 123/76 06/13/17 08:40 98.0 F 113 18 112/91 96 06/13/17 04:44 98.6 F 98 18 104/91 96 04/16/18 00:02 98.5 F 104 18 101/87 97 06/12/17 19:44 98 F 96 18 107/97 96 06/12/17 16:21 98.8 F 96 18 114/90 97 Intake and Output 06/12/17 06/13/17 06/13/17 23:59 07:59 15:59 Intake Total 710 / 710 120 / 120 Output Total 900 / 900 975 / 975 Balance -190 / -190 -975 / -975 120 / 120 Intake: Oral 710 / 710 120 / 120 Output: Urine 900 / 900 975 / 975 Other: Meal Dinner Breakfast Percent of Meal Consumed 100% 100% Weight 114.3 kg Patient Weight 06/13/17 23:59 Weight 114.3 kg General: Conversant, No Apparent Distress HEENT: Atraumatic, Normocephaly, Mucus Membranes Moist Neck: No JVD, Normal carotid pulses Cardiac: Other (irregularly irregular) Lungs: Normal Breath Sounds, No Wheeze, Rales, Rhonchi Neuro: Alert and responsive, No focal deficits noted Abdomen: Soft, Non-Tender Skin: No rashes noted on visualized skin Musculoskeletal: No Chest Wall Tenderness Extremities: No Clubbing, No Cyanosis, No Edema, Normal Pulses Results 06/13/17 05:27 06/13/17 05:27 Lab Results 06/13/17 06/13/17 06/13/17 05:27 05:27 05:27 WBC 7.2 Hgb 14.8 Hct 44.8 Plt Count 193 INR 1.2 Sodium 138 Potassium 4.0 Chloride 107 Carbon Dioxide 26 BUN 13 Creatinine 0.96 Glucose 111 H Calcium 9.2 Short CBC 06/13/17 Range/Units 05:27 WBC 7.2 (4.3-11.1) K/mcL Hgb 14.8 (12.9-16.9) g/dL Hct 44.8 (37.5-50.1) % Plt Count 193 (140-400) K/mcL BMP 06/13/17 Range/Units 05:27 Sodium 138 (136-145) mEq/L Potassium 4.0 (3.5-5.1) mEq/L Chloride 107 (98-107) mEq/L Carbon Dioxide 26 (23-29) mEq/L BUN 13 (6-20) mg/dL Creatinine 0.96 (0.70-1.30) mg/dL Glucose 111 H (70-105) mg/dL Calcium 9.2 (8.6-10.3) mg/dL Active Medications Aspirin (Aspirin) 81 mg PO DAILY [facility] Stop: 12/09/17 09:01 Last Admin: 06/13/17 08:03 Dose: 81 mg Folic Acid (Folic Acid) 1 mg PO DAILY [facility] Stop: 12/10/17 09:01 Last Admin: 06/13/17 10:51 Dose: 1 mg Heparin Sodium (Porcine) (Heparin) 5,000 unit SQ Q12HR [facility] Stop: 12/11/17 18:01 Last Admin: 06/13/17 10:53 Dose: Not Given Lorazepam (Ativan) 1 mg IVP Q1H PRN PRN Reason: Alcohol Withdrawal Stop: 12/09/17 16:11 Lorazepam (Ativan) 2 mg IVP Q4HR PRN PRN Reason: CIWA Score of 10-21 Stop: 12/09/17 16:11 Lorazepam (Ativan) 4 mg IVP Q4HR PRN PRN Reason: CIWA Score of 22-45 Stop: 12/09/17 16:11 Metoprolol Succinate (Toprol Xl) 25 mg PO ONCE ONE Stop: 06/13/17 12:03 Metoprolol Succinate (Toprol Xl) 75 mg PO BID [facility] Stop: 12/13/17 21:01 Naloxone HCl (Narcan) 0.4 mg IVP Q2MIN PRN PRN Reason: SEE COMMENTS Stop: 12/08/17 11:46 Vitamin B Complex/Vit C/Vit E (Stresstab) 1 each PO DAILY [facility] Stop: 12/10/17 09:01 Last Admin: 06/13/17 10:51 Dose: 1 each - Imaging and Cardiology Echo: report reviewed Cardiac cath: report reviewed - EKG Interpretation EKG results cardiology: other (12 hr tele AVG HR 103, A-Fib, frequent ectopy and PVCs) Consult Discharge Plan - Plan Instructions: Metoprolol (By mouth), Amiodarone (By mouth), Apixaban (By mouth) , Atrial Fibrillation (GEN), Cardioversion (GEN) Referrals: Deanne Mixon, GED INSTRUCTOR [Primary Care Provider] - (Office will not make a follow up appointment they want the patient to make their own appointment) Prescriptions: Amiodarone [Cordarone] 200 mg PO BID #60 tablet Apixaban [Eliquis] 5 mg PO BID #60 tablet Metoprolol XL (24 HR) Succ [Toprol Xl] 75 mg PO BID #90 tab.er.24h <Chaka Jefferson - Last Filed: 06/14/17 15:22> Date of Encounter: 06/14/17 - Attending Attestation I have personally performed a face to face evaluation on this patient. I have reviewed and agree with the care plan. History and Exam by me shows: Subacute onset AF of unkown duration. New nonischemic cardiomyopathy. Woul recommend antiarrythmic initiation (amio) and anticoagulation. If able to be rate controlled would discharge for outpt. cardioversion. Assessment and Plan Discussion w patient/family: The assessment and plan as outlined above was discussed with the patient and/or family members who expressed understanding and agreement. All questions were answered. Thank you for involving us in the care of your patient. Please call with any questions. History of Present Illness History of present illness: Mr. Gaxiola is a 52 year old male All Systems Review: The remainder of the systems were reviewed and are negative Physical Examination Vital Signs, Last 4 Hours Pulse Resp BP Pulse Ox 06/14/17 11:41 109/88 06/14/17 11:20 101 19 98/90 99 Results 06/14/17 04:43 06/14/17 04:43 Lab Results 06/14/17 06/14/17 04:43 04:43 WBC 6.8 Hgb 14.7 Hct 45.3 Plt Count 196 Sodium 139 Potassium 4.1 Chloride 107 Carbon Dioxide 25 BUN 12 Creatinine 1.01 Glucose 113 H Calcium 9.2
--- NOTE | 2017-06-13 13:21 | Internal Med Progress Note ---
<Duane Rendon - Last Filed: 06/13/17 17:20> Date of Encounter: 06/13/17 Time of Encounter: 11:30 - Assessment and plan (1) Cardiomyopathy Current Visit: Yes Status: Suspected Assessment and plan: Echo demonstrated EF of 20%, but LHC was negative for any coronary artery stenosis. Electrophysiology recommendations as above. Qualifiers: Cardiomyopathy type: alcoholic Qualified Code(s): I42.6 - Alcoholic cardiomyopathy (2) ETOH abuse Current Visit: Yes Status: Acute Assessment and plan: Remains on CIWA. Continues to have no withdrawal symptoms. (3) DVT prophylaxis Current Visit: Yes Status: Acute Assessment and plan: SQ H (4) Atrial fibrillation Current Visit: Yes Status: Acute Assessment and plan: Currently on Metoprolol with resting rate in the low 100s with occasional PVCs. EP consult pending. Based on history, likely chronic/paroxysmal picture. Uncertain etiology though candidates could be chronic congestive heart disease or EtOH abuse. -- Electrophysiology recommendations as below Per Electrophysiology: "TTE shows EF 20%, mildly dilated LA. LHC normal cors. TSH normal. HR improved. 12 hr tele AVG HR 103, A-Fib. Frequent couplets, NSVT noted. Currently on Toprol XL 50mg BID. BP stable. Will increase Toprol XL to 75mg BID. [id number]=6 (CHF). Discussed with Dr. Chaka Jefferson. Recommends PO Amiodarone 200mg BID. Also recommends anticoagulation. Will discuss NOAC vs Coumadin. Can be d/c'd home once rate controlled, but if unable to rate control, can complete JULIO/DCCV as inpt. If able to be rate controlled, plan for DCCV as outpt. Continue to follow." Will follow with above recommendations and discharge pending rate control. Overall patient does seem to be on optimistic course for discharge. Continue to monitor Qualifiers: Atrial fibrillation type: persistent Qualified Code(s): I48.1 - Persistent atrial fibrillation - Time Spent With Patient Total time spent is greater than 50% in coordination of care (as documented) at patient's floor/unit and/or counseling patient: - Subjective Interval history: Patient states his asymptomatic this AM experiencing no shortness of air, chest pain, orthopnea, or pedal edema. Patient and partner are both concerned of the term "congestive heart failure" and inquire for further explanation of this condition. No other acute concerns per patient. Awaiting electrophysiology recommendations. - Constitutional Vitals: Temp Pulse Resp BP Pulse Ox 98.4 F 105 17 123/76 96 06/13/17 11:31 06/13/17 11:31 06/13/17 11:31 06/13/17 11:31 06/13/17 08:40 CONSTITUTIONAL: Alert and oriented X3, well-nourished, well appearing, in no apparent distress HEAD: Normocephalic; atraumatic. EYES: PER, no scleral icterus, no drainage, no conjunctival injection Oropharynx: pink/moist RESP: NRD without use of accessory musculature, CTA b/l with no wheezes/rales/ rhonchi CARD: Regular rhythm, without murmurs, rubs, or gallop ABD: grossly normal, soft, non-tender, no guarding/distention/rigidity SKIN: normal appearance, no pallor/diaphoresis,mottling,jaundice,cyanosis EXT: Rad pulses 2+ and symmetrical; trace-to-1+ bilateral pitting edema edema; no other lesions seen PSYCH: appropriate mood/affect General appearance: Present: A&O X 3, pleasant, answers questions appropriately Internal Medicine: Result - Labs CBC & Chem 7: 06/13/17 05:27 06/13/17 05:27 Labs: Short CBC 06/13/17 Range/Units 05:27 WBC 7.2 (4.3-11.1) K/mcL Hgb 14.8 (12.9-16.9) g/dL Hct 44.8 (37.5-50.1) % Plt Count 193 (140-400) K/mcL [facility] 06/13/17 05:27 Sodium 138 Potassium 4.0 Chloride 107 Carbon Dioxide 26 BUN 13 Creatinine 0.96 Glucose 111 H Calcium 9.2 - ABG Interpretation ABG results: PT/INR, D-dimer PT 12.8 Seconds (9.4-12.1) H 06/13/17 05:27 Consult Discharge Plan - Plan Referrals: Deanne Mixon, LOAD OUT WORKER [Primary Care Provider] - (Office will not make a follow up appointment they want the patient to make their own appointment) <Patrick Gee - Last Filed: 06/13/17 17:59> Date of Encounter: 06/13/17 - Assessment and plan (1) Cardiomyopathy Current Visit: Yes Status: Suspected Qualifiers: Cardiomyopathy type: alcoholic Qualified Code(s): I42.6 - Alcoholic cardiomyopathy (2) DVT prophylaxis Current Visit: Yes Status: Acute (3) ETOH abuse Current Visit: Yes Status: Acute (4) Atrial fibrillation Current Visit: Yes Status: Acute Qualifiers: Atrial fibrillation type: persistent Qualified Code(s): I48.1 - Persistent atrial fibrillation - Time Spent With Patient Total time spent is greater than 50% in coordination of care (as documented) at patient's floor/unit and/or counseling patient: - Constitutional Vitals: Temp Pulse Resp BP Pulse Ox 98.4 F 109 18 111/86 96 06/13/17 16:10 06/13/17 16:10 06/13/17 16:10 06/13/17 16:10 06/13/17 08:40 Internal Medicine: Result - Labs CBC & Chem 7: 06/13/17 05:27 06/13/17 05:27 Labs: Short CBC 06/13/17 Range/Units 05:27 WBC 7.2 (4.3-11.1) K/mcL Hgb 14.8 (12.9-16.9) g/dL Hct 44.8 (37.5-50.1) % Plt Count 193 (140-400) K/mcL BMP 06/13/17 05:27 Sodium 138 Potassium 4.0 Chloride 107 Carbon Dioxide 26 BUN 13 Creatinine 0.96 Glucose 111 H Calcium 9.2 - ABG Interpretation ABG results: PT/INR, D-dimer PT 12.8 Seconds (9.4-12.1) H 06/13/17 05:27 - Attending Attestation Please see discharge summary of this date.
[2017-06-13] MEDS: *HR* Amiodarone 200 MG TABLET PO SCH ×2 (13:47→21:24)
--- NOTE | 2017-06-13 18:03 | Discharge Summary ---
- NOTES TO OUTPATIENT PROVIDER Notes to Outpatient Provider: Admitted with rapid a fib and EF of 20%. On amiodarone and rate control meds. Eliquis for anticoagulation. To follow up with cardiology. Date of Encounter: 06/13/17 Time of Encounter: 15:30 - Discharge Diagnosis (1) Cardiomyopathy Priority: Primary Status: Suspected Comments: Alcoholic versus tachycardia induced. Qualifiers: Cardiomyopathy type: dilated Qualified Code(s): I42.0 - Dilated cardiomyopathy (2) Atrial fibrillation Priority: Secondary Status: Chronic Qualifiers: Atrial fibrillation type: persistent Qualified Code(s): I48.1 - Persistent atrial fibrillation (3) Systolic heart failure Priority: Secondary Status: Chronic Qualifiers: Heart failure chronicity: chronic Qualified Code(s): I50.22 - Chronic systolic (congestive) heart failure (4) ETOH abuse Priority: Secondary Status: Chronic Hospital course: Mr. Gaxiola is a 52 year old male with hx of a fib (diagnosed in but on no treatment) presented to ED with CP and dyspnea. He was admitted for further evaluation and treatment. Mr Gaxiola was admitted to the [facility]. He was started on rate control meds and initially was to have stress test. Echo returned with EF of 20% and he had heart cath with normal coronaries. He remained tachycardic with significant ventricular ectopy. His medications were adjusted. On 06/13 he was seen by EP service and Amiodarone was added. He gradually had improvement in heartrate and ectopy and is felt ready for discharge home. Discharge discussed with: patient, family - Time Spent with Patient Total time spent providing and/or coordinating discharge services: 40min - Discharge Medications Prescriptions: Amiodarone [Cordarone] 200 mg PO BID #60 tablet Apixaban [Eliquis] 5 mg PO BID #60 tablet Metoprolol XL (24 HR) Succ [Toprol Xl] 75 mg PO BID #90 tab.er.24h Home Medications: Amiodarone [Cordarone] 200 mg PO BID #60 tablet 06/13/17 [Rx] Apixaban [Eliquis] 5 mg PO BID #60 tablet 06/13/17 [Rx] Folic Acid 1 mg PO DAILY tablet 06/13/17 [Rx] Metoprolol XL (24 HR) Succ [Toprol Xl] 75 mg PO BID #90 tab.er.24h 06/13/17 [Rx] Vitamin B Complex/Vit C/Vit E [Stresstab] 1 each PO DAILY tablet 06/13/17 [Rx] Allergies/Adverse Reactions: 3 Allergy/AdvReac Type Severity Reaction Status Date / Time No Known Allergies Allergy Verified 06/08/17 09:01 Date of admission: 06/11/17 14:11 Primary care physician: Deanne Mixon CNP Consults: 06/13/17 12:04 Consult to Electrophysiology (EP) [CONS] Routine Consulting Provider: Electrophysiology [place] Reason for Consult: Afib Call Completed: Yes Discharging clinician: Patrick Gee Anticipated date of discharge: 06/14/17 - Constitutional Vitals: Temp Pulse Resp BP Pulse Ox 98.4 F 109 18 111/86 96 06/13/17 16:10 06/13/17 16:10 06/13/17 16:10 06/13/17 16:10 06/13/17 08:40 General appearance: Present: A&O X 3, pleasant, answers questions appropriately - Head Head exam: Present: normocephalic - Eye Eye exam: Present: conjuntiva pink - ENT ENT exam: Present: mucous membranes dry - Respiratory Respiratory exam: Present: CTAB. Absent: rales, rhonchi, wheezes - Cardiovascular Cardiovascular exam: Present: irregular rhythm, tachycardia - GI/Abdominal GI/Abdominal exam: Present: soft. Absent: tenderness - Extremities Exam Extremities exam: Present: warm. Absent: tenderness - Neurological Exam Neurological exam: Present: alert, oriented X3, no focal deficits - Skin Skin exam: Present: dry, warm - Patient Status Disposition: Home, Self-Care Condition: Good Functional capacity at discharge: independent ambulation Overall status at discharge: patient is progressing back to baseline - Discharge Instructions Follow Up With: Deanne Mixon CNP [Primary Care Provider] - (Office will not make a follow up appointment they want the patient to make their own appointment) - Diet and Activity Activity: increase activity as tolerated Diet: low fat, low cholesterol, low salt diet
[2017-06-13] MEDS: Apixaban 5 MG TABLET PO SCH (21:24)
[2017-06-13] MEDS: Heparin 25,000 UNIT/500 ML D5W 25,000 UNIT/500 ML BAG IVC SCH (22:03)
[2017-06-14 05:29] LABS: Hematocrit 45.3 % (37.5-50.1); Hemoglobin 14.7 g/dL (12.9-16.9); Mean Corpuscular HGB Conc 32.5 g/dL (31.6-35.5); Mean Corpuscular Hemoglobin 32.6 pg (28.0-33.3); Mean Corpuscular Volume 100.4 fL (83.0-100.0); Mean Platelet Volume 11.1 fL (9.4-12.4); Platelet Count 196 K/mcL (140-400); Red Blood Count 4.51 M/mcL (4.19-5.50); Red Cell Distribution Width 13.7 % (11.5-14.5)
[2017-06-14 05:56] LABS: BUN/Creatinine Ratio 12 (6-26); Blood Urea Nitrogen 12 mg/dL (6-20); Calcium 9.2 mg/dL (8.6-10.3); Carbon Dioxide 25 mEq/L (23-29); Chloride 107 mEq/L (98-107); Glucose 113 mg/dL (70-105); Osmolality,Calculated 289 (280-300); Potassium 4.1 mEq/L (3.5-5.1); Sodium 139 mEq/L (136-145); eGFR For African Americans > 60 (> 60); eGFR For Non-African Americans > 60 (> 60)
[2017-06-14] MEDS: Aspirin 81 MG TAB.CHEW PO SCH (08:16)
[2017-06-14] MEDS: Apixaban 5 MG TABLET PO SCH (08:16)
[2017-06-14] MEDS: Metoprolol XL (24 HR) Succ 50 MG TAB.ER.24H PO SCH (08:16)
[2017-06-14] MEDS: *HR* Amiodarone 200 MG TABLET PO SCH (08:16)
[2017-06-14] MEDS: Folic Acid 1 MG TABLET PO SCH (08:16)
[2017-06-14] MEDS: Vitamin B Complex/Vit C/Vit E 1 EACH TABLET PO SCH (08:16)
--- NOTE | 2017-06-14 10:21 | Electrophysiology ProgressNote ---
Date of Encounter: 06/14/17 Time of Encounter: 10:19 Assessment and Plan (1) Atrial fibrillation with RVR Current Visit: Yes Status: Acute Per pt, initially diagnosed in the with no issues since then. Unclear if PAF or if has been persistent. Intermittent palpitations over the years. A-Fib RVR rate 167 on admission. TTE shows EF 20%, mildly dilated LA. [facility] normal cors. HR improved. 12 hr tele AVG HR 95, A-Fib. Frequent couplets, NSVT noted. Past hour AVG HR 90. Currently on Toprol XL 75mg BID. BP stable/marginal. PO Amiodarone 200mg BID started yesterday. [id number]=5 (CHF). Discussed with Dr. Chaka Jefferson. Recommends continuing PO Amiodarone 200mg BID and Toprol XL 75mg BID. Also recommends anticoagulation. Started Eliquis yesterday evening 5mg BID--brown check $30 for 90 day supply. Pt is better rate controlled. Okay to d/c home from cardiology standpoint. Will coordinate outpt follow-up and outpt DCCV in 3-4 weeks in attempt to restore sinus rhythm. Pt aware of plan. Also recommend outpt sleep study. Reconsult PRN. Cardiology signing off. (2) Cardiomyopathy Current Visit: Yes Status: Suspected TTE shows severely reduced LVEF at 20%. Chronicity unclear. Suspect tachycardia , ETOH induced. [facility] 06/10/17: normal coronary arteries. Continue betablocker, have increased for rate control--BP marginal. Ideally should be on ACEi/ARB, but BP will currently not tolerate. Can re-evaluate as outpt. Appears euvolemic upon exam. CHF education discussed at length including Na/fluid restriction diet. Strict I&O's, daily weights. Recheck TTE as outpt in 3 months to evaluate need for ICD. Qualifiers: Cardiomyopathy type: dilated Qualified Code(s): I42.0 - Dilated cardiomyopathy Discussion w patient/family: The assessment and plan as outlined above was discussed with the patient and/or family members who expressed understanding and agreement. All questions were answered. Thank you for involving us in the care of your patient. Please call with any questions. I will discuss all the above with Dr. Chaka Jefferson and make changes as necessary. Subjective Principal diagnosis: atrial fibrillation with RVR, chest pain, cardiomyoapthy Interval history: Pt denies chest pain or dyspnea this AM. Remains in A-Fib, frequent ectopy. Better rate controlled after addition of Amiodarone. 12 hr tele AVG HR 95bpm, A- Fib. Objective Vital Signs, Last 4 Hours Temp Pulse Resp BP Pulse Ox 06/14/17 07:17 98.6 F 102 19 106/83 99 Vital Signs Temp Pulse Resp BP Pulse Ox 06/14/17 07:17 98.6 F 102 19 106/83 99 06/14/17 03:49 98.6 F 87 19 96/83 99 06/14/17 00:02 98.5 F 94 17 105/78 99 06/13/17 23:30 88 06/13/17 21:37 97 06/13/17 21:27 97 06/13/17 19:57 98.4 F 103 20 99 06/13/17 16:10 98.4 F 109 18 111/86 06/13/17 11:31 98.4 F 105 17 123/76 Intake and Output 06/13/17 06/14/17 06/14/17 23:59 07:59 15:59 Intake Total 1270 / 1270 480 / 480 Output Total 725 / 725 875 / 875 Balance 545 / 545 -875 / -875 480 / 480 Intake: Oral 1270 / 1270 480 / 480 Output: Urine 725 / 725 875 / 875 Other: Meal Dinner Breakfast Percent of Meal Consumed 100% 100% Weight 115.8 kg Patient Weight 06/14/17 23:59 Weight 115.8 kg General: Conversant, No Apparent Distress HEENT: Atraumatic, Normocephaly, Mucus Membranes Moist Neck: No JVD, Normal carotid pulses Cardiac: Other (irregularly irregular) Lungs: Normal Breath Sounds, No Wheeze, Rales, Rhonchi Neuro: Alert and responsive, No focal deficits noted Abdomen: Soft, Non-Tender Skin: No rashes noted on visualized skin Musculoskeletal: No Chest Wall Tenderness Extremities: No Clubbing, No Cyanosis, No Edema, Normal Pulses Results 06/14/17 04:43 06/14/17 04:43 Lab Results 06/14/17 06/14/17 04:43 04:43 WBC 6.8 Hgb 14.7 Hct 45.3 Plt Count 196 Sodium 139 Potassium 4.1 Chloride 107 Carbon Dioxide 25 BUN 12 Creatinine 1.01 Glucose 113 H Calcium 9.2 Short CBC 06/14/17 Range/Units 04:43 WBC 6.8 (4.3-11.1) K/mcL Hgb 14.7 (12.9-16.9) g/dL Hct 45.3 (37.5-50.1) % Plt Count 196 (140-400) K/mcL BMP 06/14/17 Range/Units 04:43 Sodium 139 (136-145) mEq/L Potassium 4.1 (3.5-5.1) mEq/L Chloride 107 (98-107) mEq/L Carbon Dioxide 25 (23-29) mEq/L BUN 12 (6-20) mg/dL Creatinine 1.01 (0.70-1.30) mg/dL Glucose 113 H (70-105) mg/dL Calcium 9.2 (8.6-10.3) mg/dL Active Medications Amiodarone HCl (Cordarone) 200 mg PO BID [facility] Stop: 12/13/17 13:01 Last Admin: 06/14/17 08:16 Dose: 200 mg Apixaban (Eliquis) 5 mg PO BID [facility] Stop: 12/13/17 21:01 Last Admin: 06/14/17 08:16 Dose: 5 mg Aspirin (Aspirin) 81 mg PO DAILY [facility] Stop: 12/09/17 09:01 Last Admin: 06/14/17 08:16 Dose: 81 mg Folic Acid (Folic Acid) 1 mg PO DAILY [facility] Stop: 12/10/17 09:01 Last Admin: 06/14/17 08:16 Dose: 1 mg Lorazepam (Ativan) 1 mg IVP Q1H PRN PRN Reason: Alcohol Withdrawal Stop: 12/09/17 16:11 Lorazepam (Ativan) 2 mg IVP Q4HR PRN PRN Reason: CIWA Score of 10-21 Stop: 12/09/17 16:11 Lorazepam (Ativan) 4 mg IVP Q4HR PRN PRN Reason: CIWA Score of 22-45 Stop: 12/09/17 16:11 Metoprolol Succinate (Toprol Xl) 75 mg PO BID [facility] Stop: 12/13/17 21:01 Last Admin: 06/14/17 08:16 Dose: 75 mg Naloxone HCl (Narcan) 0.4 mg IVP Q2MIN PRN PRN Reason: SEE COMMENTS Stop: 12/08/17 11:46 Vitamin B Complex/Vit C/Vit E (Stresstab) 1 each PO DAILY [facility] Stop: 12/10/17 09:01 Last Admin: 06/14/17 08:16 Dose: 1 each - Imaging and Cardiology Echo: report reviewed Cardiac cath: report reviewed - EKG Interpretation EKG results cardiology: other (12 hr tele AVG HR 95, A-Fib, frequent ectopy, bigeminy and short runs NSVT) Consult Discharge Plan - Plan Referrals: Deanne Mixon, LADLE OPERATOR [Primary Care Provider] - (Office will not make a follow up appointment they want the patient to make their own appointment) Prescriptions: Amiodarone [Cordarone] 200 mg PO BID #60 tablet Apixaban [Eliquis] 5 mg PO BID #60 tablet Metoprolol XL (24 HR) Succ [Toprol Xl] 75 mg PO BID #90 tab.er.24h
[2017-06-14 11:42] VITALS: BP 109/88
--- NOTE | 2017-06-14 16:34 | Internal Med Progress Note ---
Date of Encounter: 06/14/17 Time of Encounter: 11:45 - Assessment and plan (1) Cardiomyopathy Status: Acute Assessment and plan: Newly diagnosed. Echocardiogram shows severely reduced EF around 20%, indeterminate diastolic function, mild LV dilation, mild to moderate MR and TR. Cardiology on board. Blood pressure noted to be borderline low. Continue low- dose beta wang. Outpatient cardiology follow-up. Left heart catheterization showed normal coronaries. Qualifiers: Cardiomyopathy type: dilated Qualified Code(s): I42.0 - Dilated cardiomyopathy (2) ETOH abuse Status: Ruled-out Assessment and plan: Patient claims having 1-2 beers per day, he insists that he is not an alcoholic , never has alcohol withdrawal and has no alcohol related problems. (3) Atrial fibrillation Status: Acute Assessment and plan: New onset. EP cardiology on board, average heart rate in the last 24 hours noted to be around 100. Patient has been started on amiodarone. Continue beta awng, amiodarone, anticoagulation with Eliquis. Patient is stable for discharge with outpatient cardiology follow-up and plan for DC CV. Qualifiers: Atrial fibrillation type: persistent Qualified Code(s): I48.1 - Persistent atrial fibrillation - Time Spent With Patient Total time spent is greater than 50% in coordination of care (as documented) at patient's floor/unit and/or counseling patient: - Subjective Interval history: Reports feeling well. No chest pain, shortness of breath, leg swelling. - Constitutional Vitals: Temp Pulse Resp BP Pulse Ox 98.6 F 101 19 109/88 99 06/14/17 07:17 06/14/17 11:20 06/14/17 11:20 06/14/17 11:41 06/14/17 11:20 General appearance: Present: A&O X 3, answers questions appropriately - Respiratory Respiratory exam: Present: CTAB. Absent: accessory muscle use, rales, rhonchi, wheezes - Cardiovascular Cardiovascular exam: Present: RRR, +S1, +S2. Absent: diastolic murmur, gallop, rubs, systolic murmur - GI/Abdominal GI/Abdominal exam: Present: normal bowel sounds, soft, no peritoneal signs. Absent: distended, tenderness Internal Medicine: Result - Labs CBC & Chem 7: 06/14/17 04:43 06/14/17 04:43 Labs: Short CBC 06/14/17 Range/Units 04:43 WBC 6.8 (4.3-11.1) K/mcL Hgb 14.7 (12.9-16.9) g/dL Hct 45.3 (37.5-50.1) % Plt Count 196 (140-400) K/mcL BMP 06/14/17 04:43 Sodium 139 Potassium 4.1 Chloride 107 Carbon Dioxide 25 BUN 12 Creatinine 1.01 Glucose 113 H Calcium 9.2 - ABG Interpretation ABG results: PT/INR, D-dimer PT 12.8 Seconds (9.4-12.1) H 06/13/17 05:27 Consult Discharge Plan - Plan Instructions: Metoprolol (By mouth), Amiodarone (By mouth), Apixaban (By mouth) , Atrial Fibrillation (GEN), Cardioversion (GEN) Referrals: Deanne Mixon, CLINICAL CARE MANAGER [Primary Care Provider] - (Office will not make a follow up appointment they want the patient to make their own appointment) Prescriptions: Amiodarone [Cordarone] 200 mg PO BID #60 tablet Apixaban [Eliquis] 5 mg PO BID #60 tablet Metoprolol XL (24 HR) Succ [Toprol Xl] 75 mg PO BID #90 tab.er.24h
--- NOTE | 2017-06-17 09:11 | Electrocardiograph Report ---
[address] [address] Test Date: 2017-06-11 Pat Name: Luis Enrique Gaxiola Department: 104 Room: 2N14 Gender: M Vice President Of Consulting Services: : 1965 Requested By: Patrick Gee Order Number: [id number] Reading MD: Teddy Brar Measurements Intervals [place] Rate: 104 P: ME: 0 QRS: 79 QRSD: 99 T: 189 QT: 367 QTc: 427 Interpretive Statements ATRIAL FIBRILLATION WITH RAPID VENTRICULAR RESPONSE WITH ABERRANT CONDUCTION OR VENTRICULAR PREMATURE COMPLEXES NONSPECIFIC ST AND T-WAVE CHANGES Electronically Signed On 06-17-2017 9:10:36 EDT by Teddy Brar
--- NOTE | 2017-07-01 13:11 | Invasive Diagnostic Lab Proc ---
Name: Luis Enrique Gaxiola Date of Study: 06/10/2017 Date: 1965 Ht: 72.8in Medical Record#: [id number] Age: 52 Wt: 255.74lb Gender: Male BSA: 2.38 Order #: [id number] BMI: 33.89 Physicians Procedure Physician: Steven Sheridan MD Referring MD: Referring MD: Staff Name Position Time In Day Ogden RT Scrub 04:42 PM Desirae Luna RT (R) Monitor 04:42 PM Kely Riggins RN Balancer 04:42 PM Indications Indication Unstable Angina CHF Procedures Performed Procedure CORONARY ARTERY ANGIO S&I Pre-Procedure Checklist Informed consent is complete signed and on chart. H&P is on chart. ID band is on and ID verified with patient. Patient NPO for procedure The procedure was described for the patient and questions were answered. ECG is on chart. Rhythm: NSR Plan of Care Patient will tolerate the procedure without complications. Adequate level of comfort will be maintained. Hemodynamics will remain stable Patient will recover from procedure without complications. Respiratory function will be maintained. Cardiac rhythm will remain stable. Patient temperature will be maintained. Patient and/or family have verbalized understanding of the procedure. Patient Education Chief Complaint/Reason for Test: Cardiac Cath Developmental Category: Adult (18-64 years) Developmentally Appropriate for Age: Yes Learning Barriers: None Education Needs: Procedure Education Method: Verbal Information Taught: Cardiac Cath Educational Evaluation: Able to repeat information Intravenous Access Time IV Size Location DC'd Fluid/Drip Rate Units RN 20g 1 /" Patent On Arrival Lt Antecubital 0.9NaCl 25 ml/hr Kely Riggins RN Allergies No Known Allergies Vital Signs Time BP (mmHg) HR (bpm) O2 Sat. RR (bpm) LOC 04:44 PM / % 4 = Oriented but drowsy 04:41 PM 136 / 119 125 81 % 04:45 PM 148 / 85 135 96 % 04:51 PM 132 / 112 123 94 % 04:56 PM 134 / 104 119 93 % 05:00 PM 129 / 105 111 93 % 5 = Fully awake and oriented or at pre-proc level Procedural Medications Time Medication Dose Units Method Given By 04:44 PM Oxygen 2 L/min nasal cannula Kely Riggins RN 04:44 PM Versed 1 mg Intravenous Kely Riggins RN 04:44 PM Fentanyl 50 mcg Intravenous Kely Riggins RN 04:51 PM Lidocaine 2% 10 ml Subcutaneous Steven Sheridan MD ASA Classification: CLASS II- Mild systemic disease (i.e. well-controlled diabetes, hypertension, asthma, cigarette smoking) Olimpia Score Preprocedure Postprocedure Activity 2- Moves 4 extremities sustained head lift Activity 2- Moves 4 extremities sustained head lift Circulation 2- SBP +/= 20 points of pre-anesthetic level Circulation 2- SBP +/= 20 points of pre-anesthetic level Consciousness 2- Awake and alert oriented x 3 Consciousness 2- Awake and alert oriented x 3 O2 Saturation 2- Able to maintain O2 satruation of 92% on room air O2 Saturation 2- Able to maintain O2 satruation of 92% on room air Respiratory 2- Able to deep breathe and cough well Respiratory 2- Able to deep breathe and cough well Total Score 10 Total Score 10 Contrast Agent: Isovue Diagnostic Contrast: 37 ml Total Contrast: 37 ml Fluoro Dose: 241 mGy Procedure Log Time Note Enter By 04:23 PM CathStat 04:35 PM CathStat 04:35 PM Vitals capture started with the following parameters, Patient=Adult, Interval=5 min, Initial Bpsuzxtb=648 mmHg, Deflation Rate=5 mmHg, Cuff placed on Right Arm 04:39 PM Vitals capture started with the following parameters, Patient=Adult, Interval=5 min, Initial Krmuphst=415 mmHg, Deflation Rate=5 mmHg, Cuff placed on Right Arm 04:41 PM WL=760 bpm, CUBX=168/119 mmhg, SpO2=81.0 %, Comment=a-fib 04:42 PM Pt arrived to irrigation laborer 2 at 16:42 04:42 PM Day Ogden RT Position: Scrub Time in: 16:42 04:42 PM Desirae Luna RT (R) Position: Monitor Time in: 16:42 04:42 PM Kely Riggins RN Position: Balancer Time in: 16:42 04:42 PM Patient charges- Angio tray pack, Navilyst 3mm J, Pulse Oximetry and ACIST tubing and transducer 04:42 PM IV Supplies used: J loop Angio Cath. 04:42 PM Hair removed from procedure site in procedure lab using clippers. Bilateral groin prepped with Chloraprep by Desirae Luna (R), then patient was draped. Skin intact. : PM Physician arrived 16::42 PM ASA Class CLASS II- Mild systemic disease (i.e. well-controlled diabetes, hypertension, asthma, cigarette smoking) dsp: PM Meet and greet completed : PM Sign in performed according to hospital policy. : PM Procedure start 16: PM Time: 16:44 Oxygen on at 2 L/min per nasal cannula by Kely Riggins RN 44 PM Time: 16:44 Versed 1 mg Intravenous Given by Kely Riggins RN 44 PM Time: 16:44 Fentanyl 50 mcg Intravenous [facility] PM Time: 16:44 Patient comfortable and pain free: Yes 44 PM Time: 16:44LOC: 4 = Oriented but drowsy :45 PM Clinical Presentation: Non-STEMI :45 PM YW=590 bpm, USDP=309/85 mmhg, SpO2=96.0 %, Comment=a-fib 04:46 PM Pressure channel 1 zeroed. 04:51 PM JH=986 bpm, DOJV=168/112 mmhg, SpO2=94.0 %, Comment=a-fib 04:51 PM Time out performed according to hospital policy 51 PM Time: 16:51 10 ml Lidocaine 2% to right groin Subcutaneous Given by Steven Sheridan MD :51 PM Micro-Introducer Kit utilized for sheath placement :51 PM Bolus angiogram of right Femoral complete: ml/sec for a total of 3 mls :52 PM 5Fr FR 4 catheter inserted over the wire DN :52 PM 0.035 145cm Navilyst 3mmJ wire [id number] :52 PM Access obtained by percutaneous puncture. 6Fr 10cm Terumo G[place] sheath placed in right Femoral artery. [id number] [email or web address] 04:53 PM RCA angiography performed in multiple views. [email or web address] 04:53 PM Coronary Dominance: right [email or web address] 04:54 PM Catheter removed dspellman 04:54 PM 5Fr FL 4 catheter inserted over the wire [facility] dspellman 04:54 PM LCA angiography performed in multiple views. [email or web address] 04:54 PM Recorded Pressure: Ao, EW=117, Condition=Condition 1 (Aorta) Ao 94/47/72 04:55 PM Catheter removed dspellman 04:56 PM HL=420 bpm, EGZB=745/104 mmhg, SpO2=93.0 % 04:57 PM Procedure completed at 16:57 [email or web address] 04:57 PM Did you address MELANY flow and Dominance? Yes [email or web address] 04:57 PM Sign out completed: Radiation Dose 241.07 mGy Fluoro Time: 0.8 Isovue 370 - 200ml contrast ml given by Steven Sheridan MD. Complications: NoneCardiac Rehab Consult needed: NoConfirmed administered medications: Yes [email or web address] 04:57 PM Isovue 370 - 200ml,1 Bottle(s) used. dspell 04:58 PM Arterial sheath pulled, Angio-seal closure device used and was Successful [id number] S/N. dspell 04:58 PM Estimated Blood Loss: minimal dspell 04:58 PM Post ECG Atrial Fibrillation [email or web address] 05:00 PM Post Blood Pressure 134/104 dspellman 05:00 PM NO=876 bpm, JWAJ=864/105 mmhg, SpO2=93 % 05:02 PM Vitals capture stopped. 05:03 PM 17:02 Post Pulses Bilateral DP 2+ [email or web address] 05:03 PM 17:03 Post Pulses Bilateral PT Doppler dspell 05:03 PM Information taught Cardiac Cath and Angioseal dspell 05:03 PM Education needs Procedure and Plan of Care dspell 05:03 PM Family placed in consult room. [email or web address] 05:04 PM Education Methods Verbal dspell 05:04 PM Education evaluation Able to repeat information dspell 05:04 PM Site status No bleeding/hematoma - Rt Groin as reported by Day Ogden RT at 17:04 dspell 05:04 PM Opsite applied dspell 05:08 PM Patient out of room: 17:08 [email or web address] 05:08 PM Complications: None dspell 05:09 PM Fluoro Time: 0.8 dspellman 05:09 PM Isovue 370 - 200ml contrast [address] Sheridan. [email or web address] 05:09 PM Radiation Dose 241.07 mGy [email or web address] 05:19 PM Report given to RN Pt taken to [facility] Room #25. 17:19 [email or web address] Complications Complication None None Hemodynamics Pressures Site Systolic/A Wave Diastolic/V Wave Mean AO 94 47 72 Post Procedure Information Blood Pressure: 134/104 mmHg Rhythm: Atrial Fibrillation Closure Device Time Device Success/Fail 06/10/2017 5:09:00 PM Angio-Seal VIP Successful Site Checks Time Location Status Staff Sheath In? Note 05:04 PM Rt Groin No bleeding/hematoma Day Ogden RT Pulses Time Site Pre-Procedure Post-Procedure Note 06/10/2017 4:40:00 PM Bilateral DP & PT 2+ 5:02:00 PM Bilateral DP 2+ 5:03:00 PM Bilateral PT Doppler Updated by Desirae Luna RT (R) on 06/10/2017 5:19:42 PM Desirae Luna RT electronically signed on 07/01/2017 1:02:58 PM with status of Final
== END 2017-06-14 14:14 | disposition home or self-care (01) | DRG 287 ==
LOC: EMEROO 08:09 → 2SOUTHHOLD 08:09 → SUATTDRO 10:18 → 2SOUTHHOLD 10:35 → 2NNU 06-11 14:09 → SUATTDRO 06-11 14:11
PROVIDERS: ADMIT Internal Medicine; ATTEND Internal Medicine

== ENCOUNTER 2019-10-01 09:00 | Observation (INO) ==
[2019-10-01] MEDS ORDERED: Naloxone 0.4 MG/ML INJ IVP PRN (10:05)
[2019-10-01 12:29] LABS: Basophils # 0.1 K/mcL (0.0-0.2); Basophils % 1.1 %; Eosinophils # 0.2 K/mcL (0.0-0.6); Eosinophils % 2.8 %; Hematocrit 44.3 % (37.5-50.1); Hemoglobin 14.4 g/dL (12.9-16.9); Immature Granulocytes % 0.2 % (0-4); Lymphocytes # 2.1 K/mcL (0.6-4.6); Lymphocytes % 36.3 %; Mean Corpuscular HGB Conc 32.5 g/dL (31.6-35.5); Mean Corpuscular Hemoglobin 32.1 pg (28.0-33.3); Mean Corpuscular Volume 98.7 fL (83.0-100.0); Mean Platelet Volume 10.2 fL (9.4-12.4); Monocytes # 0.4 K/mcL (0.0-1.3); Monocytes % 7.7 %; Platelet Count 222 K/mcL (140-400); Red Blood Count 4.49 M/mcL (4.19-5.50); Red Cell Distribution Width 12.6 % (11.5-14.5); Segmented Neutrophils % 51.9 %; White Blood Count 5.7 K/mcL (4.3-11.1)
[2019-10-01 12:59] LABS: BUN/Creatinine Ratio 16 (6-26); Blood Urea Nitrogen 17 mg/dL (6-20); Calcium 9.1 mg/dL (8.6-10.3); Carbon Dioxide 29 mEq/L (23-29); Chloride 105 mEq/L (98-107); Glucose 104 mg/dL (70-105); Magnesium 2.2 mg/dL (1.6-2.6); Osmolality,Calculated 290 (280-300); Potassium 4.4 mEq/L (3.5-5.1); Sodium 139 mEq/L (136-145); eGFR For African Americans > 60 (> 60); eGFR For Non-African Americans > 60 (> 60)
[2019-10-01] MEDS: Apixaban 5 MG TABLET PO SCH (21:34)
[2019-10-02] MEDS: Apixaban 5 MG TABLET PO SCH ×2 (07:39→20:28)
[2019-10-02] MEDS: Folic Acid 1 MG TABLET PO SCH (07:39)
[2019-10-02] MEDS: Vitamin B Complex/Vit C/Vit E 1 EACH TABLET PO SCH (07:39)
[2019-10-02] MEDS: Loratadine 10 MG TABLET PO SCH (07:39)
[2019-10-02] MEDS: Metoprolol XL (24 HR) Succ 50 MG TAB.ER.24H PO SCH (07:39)
[2019-10-03] MEDS: Loratadine 10 MG TABLET PO SCH (08:51)
[2019-10-03] MEDS: Folic Acid 1 MG TABLET PO SCH (08:51)
[2019-10-03] MEDS: Vitamin B Complex/Vit C/Vit E 1 EACH TABLET PO SCH (08:51)
[2019-10-03] MEDS: Apixaban 5 MG TABLET PO SCH (08:51)
[2019-10-03] MEDS ORDERED: 0.9 % Sodium Chloride 500 ML IVC ONE (09:50)
[2019-10-03] MEDS: *HR* Midazolam HCl 5 MG/5 ML VIAL IVP PRN ×2 (10:18→10:21)
[2019-10-03] MEDS: *HR* FentaNYL (PF) 100 MCG/2 ML VIAL IVP PRN ×2 (10:18→10:21)
[2019-10-03] MEDS: Metoprolol XL (24 HR) Succ 50 MG TAB.ER.24H PO SCH ×2 (11:28→12:27)
[2019-10-03 11:54] VITALS: BP 129/80
== END 2019-10-03 13:53 | disposition home or self-care (01) ==
LOC: 2ANU
PROVIDERS: ADMIT Internal Medicine Clinical Cardiac Electrophysiology; ATTEND Internal Medicine Clinical Cardiac Electrophysiology

== ENCOUNTER 2020-04-08 10:00 | Observation (INO) ==
[2020-04-08 14:38] LABS: BUN/Creatinine Ratio 13 (6-26); Blood Urea Nitrogen 14 mg/dL (6-20); Calcium 9.2 mg/dL (8.6-10.3); Carbon Dioxide 28 mEq/L (23-29); Chloride 105 mEq/L (98-107); Glucose 112 mg/dL (70-105); Magnesium 2.2 mg/dL (1.6-2.6); Osmolality,Calculated 287 (280-300); Potassium 3.9 mEq/L (3.5-5.1); Sodium 138 mEq/L (136-145); eGFR For African Americans > 60 (> 60); eGFR For Non-African Americans > 60 (> 60)
[2020-04-08] MEDS: Apixaban 5 MG TABLET PO SCH (19:47)
[2020-04-09] MEDS: Metoprolol XL (24 HR) Succ 50 MG TAB.ER.24H PO SCH (07:37)
[2020-04-09] MEDS: Cholecalciferol (D-3) 1,000 UNIT (25MCG) TABLET PO SCH (07:37)
[2020-04-09] MEDS: Cyanocobalamin (B-12) 1,000 MCG TABLET PO SCH (07:37)
[2020-04-09] MEDS: Loratadine 10 MG TABLET PO SCH (07:37)
[2020-04-09] MEDS: Apixaban 5 MG TABLET PO SCH ×2 (07:37→19:17)
[2020-04-09] MEDS ORDERED: CREATINE MONOHYDRATE PO SCH (09:00)
[2020-04-09] MEDS ORDERED: ZINC ACETATE 25 MG PO SCH (09:00)
[2020-04-10] MEDS: Loratadine 10 MG TABLET PO SCH (07:22)
[2020-04-10] MEDS: Metoprolol XL (24 HR) Succ 50 MG TAB.ER.24H PO SCH (07:22)
[2020-04-10] MEDS: Apixaban 5 MG TABLET PO SCH (07:22)
[2020-04-10] MEDS: Cyanocobalamin (B-12) 1,000 MCG TABLET PO SCH (07:22)
[2020-04-10] MEDS: Cholecalciferol (D-3) 1,000 UNIT (25MCG) TABLET PO SCH (07:22)
[2020-04-10] MEDS ORDERED: 0.9 % Sodium Chloride 500 ML IVC ONE (11:59)
[2020-04-10] MEDS: *HR* Midazolam HCl 5 MG/5 ML VIAL IVP PRN ×4 (12:24→12:41)
[2020-04-10] MEDS: *HR* FentaNYL (PF) 100 MCG/2 ML VIAL IVP PRN ×3 (12:24→12:37)
[2020-04-10 13:25] VITALS: BP 100/72
== END 2020-04-10 15:17 | disposition home or self-care (01) ==
LOC: 2ANU
PROVIDERS: ADMIT Internal Medicine Clinical Cardiac Electrophysiology; ATTEND Internal Medicine Clinical Cardiac Electrophysiology